=== PATIENT | male | born 1985 | race Caucasian/White ===

== ENCOUNTER 2017-11-12 19:50 | Emergency (ER) | payer MEDICAID, SELFPAY ==
[2017-11-12 19:55] VITALS: BP 138/83; PULSE 95; RESP 18; TEMP 36.7; O2SAT 96; BMI 34.2
--- NOTE | 2017-11-12 20:15 | XR_ITS ---
XR chest 2V HISTORY: ITS.REASON: palpatations ORDERING PHYSICIAN: Chaz Borja MD PATIENT AGE: 32 years COMPARISON: 11/22/2015 FINDINGS: The cardiomediastinal silhouette and pulmonary vascularity are within normal limits. The lungs are clear without infiltrates, suspicious nodules, or pleural effusions. No acute bony abnormalities. IMPRESSION: Negative chest, no acute finding
[2017-11-12 20:37] LABS: Basophils # 0.1 K/mm3 (0-0.2); Basophils % 0.6 % (0.1-2.0); Eosinophils # 0.2 K/mm3 (0.0-0.4); Eosinophils % 1.9 % (0.1-12.0); Hematocrit 46.1 % (42.0-52.0); Hemoglobin 16.3 g/dL (14.1-18.0); Lymphocytes # 2.9 K/mm3 (0.7-4.5); Lymphocytes % 32.6 K/mm3 (10-50); Mean Corpuscular HGB Conc 35.3 g/dL (31.8-35.4); Mean Corpuscular Hemoglobin 30.7 pg (27.0-31.2); Mean Corpuscular Volume 87.1 fl (80-94); Mean Platelet Volume 7.4 fl (7.4-10.4); Monocytes # 0.5 K/mm3 (0.1-1.0); Monocytes % 5.7 % (1.7-9.3); Neutrophils # 5.2 K/mm3 (1.8-7.8); Neutrophils % 59.1 % (37.0-80.0); Platelet Count 233 K/mm3 (142-424); Red Blood Count 5.29 M/mm3 (4.60-6.20); Red Cell Distribution Width 12.7 % (11.5-17.5); White Blood Count 8.8 K/mm3 (4.8-10.8)
--- NOTE | 2017-11-12 20:48 | HMH.EDARPALP ---
ED Disposition Clinical Impression: Palpitations Disposition: Home, Self-Care Condition on Discharge: Good Additional Instructions: call pcp for follow up Referrals: Bárbara Tubbs MD [Primary Care Provider] - - Critical Care Critical Care Time: No Attestation: On 11/12/17, the high probability of a clinically significant, sudden or life threatening deterioration of the following system(s) required my full and direct attention, intervention and personal management. The time I documented below is in addition to time spent performing reported procedures but includes the following listed in this critical care notation. Medical Decision Making - Medical Records Medical records reviewed: Yes: I reviewed the patient's medical records. - Nils Inquiry Pt receiving controlled substance: No Vital Signs: 11/12/17 19:55 Temperature 98.0 F Temperature Source Oral Pulse Rate [Right Brachial] 95 H Respiratory Rate 18 Blood Pressure [Right Arm] 138/83 Blood Pressure Mean [Right Arm] 101 Blood Pressure Source [Right Arm] Automatic Cuff Blood Pressure Position [Right Arm] Sitting 02 Sat by Pulse Oximetry 96 Oxygen Delivery Method Room Air - Lab Data Lab results reviewed: Yes: I reviewed the patient's lab results. Lab Results 11/12/17 20:20: WBC 8.8, RBC 5.29, Hgb 16.3, Hct 46.1, MCV 87.1, MCH 30.7, MCHC 35.3, RDW 12.7, Plt Count 233, MPV 7.4, Neut % (Auto) 59.1, Lymph % (Auto) 32.6, [place] % (Auto) 5.7, Eos % (Auto) 1.9, Baso % (Auto) 0.6, Neut # (Auto) 5.2, Lymph # (Auto) 2.9, [place] # (Auto) 0.5, Eos # (Auto) 0.2, Baso # (Auto) 0.1 11/12/17 20:20: Sodium 139, Potassium 3.6, Chloride 103, Carbon Dioxide 28, Anion Gap 11.6, BUN 16, Creatinine 1.13, Estimated Creat Clear 150, Estimated GFR 75, Est GFR ( Amer) 90, Glucose 98, Calcium 8.3 L, Total Bilirubin 0.1 L, AST 14 L, ALT 29, Alkaline Phosphatase 98, Total Creatine Kinase 124, CK-MB (CK-2) 0.7, CK-MB (CK-2) Rel Index 0.6, Troponin I < 0.02, Total Protein 7.6, Albumin 3.1 L, Globulin 4.5 H, Albumin/Globulin Ratio 0.7 L, TSH 6.03 H, Free T4 Index 4.0 L, Thyroxine (T4) 11.9, T3 Uptake 34 Result diagrams: 11/12/17 20:20 11/12/17 20:20 Orders (Tests/Meds): ORDERS Category Date Time Status CXR 2 view (NOT portable) [XR chest 2V] Stat Exams 11/12/17 20:15 Taken - Radiology Data #1 Image(s): Chest Image Reviewed: Yes I reviewed the patient's radiology image Preliminary Findings: Normal/NAD - ECG Data Tracing #1 I reviewed this ECG and interpreted as documented below: Normal Sinus Rhythm: Yes Ischemic changes: non-specific ST-T wave changes Arrhythmia/Palpitations HPI - General Chief Complaint: Arrhythmia/Palpitations Stated Complaint: heart palpitations and Ab Pain Time Seen by Provider: 11/12/17 20:48 Mode of Arrival: Ambulatory Source of Information: Patient, Medical Record Limitations: No Limitations - History of Present Illness HPI narrative: pt with 2 min episode of inc hr with no syncope and no known stimulants - has had in past and neg w/u about 1 yr ago MD complaint: heart racing Onset (ago): minute(s) Duration: intermittent Severity: similar to previous episodes Context: occurred during rest Arrhythmia history: other Associated symptoms: denies other symptoms - Related Data Home Medications Medication Instructions Recorded Confirmed Levothyroxine Sodium [Synthroid 100 mcg PO DAILY 11/12/17 11/12/17 100mcg (0.1mg) tablet] Lisinopril/Hydrochlorothiazide 1 tab PO DAILY 11/12/17 11/12/17 [Lisinopril-Hctz 10-12.5 mg Tab] Meclizine HCl [Meclizine 25mg Tab] 25 mg PO BID 11/12/17 11/12/17 Omeprazole [Omeprazole 20mg Tab] 20 mg PO DAILY 11/12/17 11/12/17 Allergies Allergy/AdvReac Type Severity Reaction Status Date / Time No Known Allergies Allergy Unverified 08/14/17 14:53 [facility] History I have reviewed the patient's past medical history: Yes Medical History: Denies:: Diabetes Lluvia
--- NOTE | 2017-11-12 20:51 | ED_ITS ---
ED Disposition Clinical Impression: Palpitations Disposition: Home, Self-Care Condition on Discharge: Good Additional Instructions: call pcp for follow up Referrals: Bárbara Tubbs MD [Primary Care Provider] - - Critical Care Critical Care Time: No Attestation: On 11/12/17, the high probability of a clinically significant, sudden or life threatening deterioration of the following system(s) required my full and direct attention, intervention and personal management. The time I documented below is in addition to time spent performing reported procedures but includes the following listed in this critical care notation. Medical Decision Making - Medical Records Medical records reviewed: Yes: I reviewed the patient's medical records. - Nils Inquiry Pt receiving controlled substance: No Vital Signs: 11/12/17 19:55 Temperature 98.0 F Temperature Source Oral Pulse Rate [Right Brachial] 95 H Respiratory Rate 18 Blood Pressure [Right Arm] 138/83 Blood Pressure Mean [Right Arm] 101 Blood Pressure Source [Right Arm] Automatic Cuff Blood Pressure Position [Right Arm] Sitting 02 Sat by Pulse Oximetry 96 Oxygen Delivery Method Room Air - Lab Data Lab results reviewed: Yes: I reviewed the patient's lab results. Lab Results 11/12/17 20:20: WBC 8.8, RBC 5.29, Hgb 16.3, Hct 46.1, MCV 87.1, MCH 30.7, MCHC 35.3, RDW 12.7, Plt Count 233, MPV 7.4, Neut % (Auto) 59.1, Lymph % (Auto) 32.6 , [place] % (Auto) 5.7, Eos % (Auto) 1.9, Baso % (Auto) 0.6, Neut # (Auto) 5.2, Lymph # (Auto) 2.9, [place] # (Auto) 0.5, Eos # (Auto) 0.2, Baso # (Auto) 0.1 11/12/17 20:20: Sodium 139, Potassium 3.6, Chloride 103, Carbon Dioxide 28, Anion Gap 11.6, BUN 16, Creatinine 1.13, Estimated Creat Clear 150, Estimated GFR 75, Est GFR ( Amer) 90, Glucose 98, Calcium 8.3 L, Total Bilirubin 0.1 L, AST 14 L, ALT 29, Alkaline Phosphatase 98, Total Creatine Kinase 124, CK- MB (CK-2) 0.7, CK-MB (CK-2) Rel Index 0.6, Troponin I < 0.02, Total Protein 7.6 , Albumin 3.1 L, Globulin 4.5 H, Albumin/Globulin Ratio 0.7 L, TSH 6.03 H, Free T4 Index 4.0 L, Thyroxine (T4) 11.9, T3 Uptake 34 Result diagrams: 11/12/17 20:20 11/12/17 20:20 Orders (Tests/Meds): ORDERS Category Date Time Status CXR 2 view (NOT portable) [XR chest 2V] Stat Exams 11/12/17 20:15 Taken - Radiology Data #1 Image(s): Chest Image Reviewed: Yes I reviewed the patient's radiology image Preliminary Findings: Normal/NAD - ECG Data Tracing #1 I reviewed this ECG and interpreted as documented below: Normal Sinus Rhythm: Yes Ischemic changes: non-specific ST-T wave changes Arrhythmia/Palpitations HPI - General Chief Complaint: Arrhythmia/Palpitations Stated Complaint: heart palpitations and Ab Pain Time Seen by Provider: 11/12/17 20:48 Mode of Arrival: Ambulatory Source of Information: Patient, Medical Record Limitations: No Limitations - History of Present Illness HPI narrative: pt with 2 min episode of inc hr with no syncope and no known stimulants - has had in past and neg w/u about 1 yr ago complaint: heart racing Onset (ago): minute(s) Duration: intermittent Severity: similar to previous episodes Context: occurred during rest Arrhythmia history: other Associated symptoms: denies other symptoms - Related Data Home Medications Medication Instructions Recorded Confirme
[2017-11-12 21:14] LABS: Alanine Aminotransferase 29 U/L (12-78); Albumin Level 3.1 gm/dL (3.4-5.0); Albumin/Globulin Ratio 0.7 (1.1-1.8); Alkaline Phosphatase 98 U/L (46-116); Anion Gap 11.6 mEq/L (5-15); Aspartate Amino Transferase 14 U/L (15-37); Bilirubin,Total 0.1 mg/dL (0.2-1.0); Blood Urea Nitrogen 16 mg/dL (7-18); CKMB Relative Index 0.6 U/L (0-4.0); Calcium 8.3 mg/dL (8.5-10.1); Carbon Dioxide 28 mmol/L (21.0-32.0); Chloride 103 mmol/L (98-107); Creatine Kinase 124 U/L (39-308); Creatine Kinase MB 0.7 mg/ml (0.0-3.6); Creatinine Clearance Estimated 150 mL/min (0-300); Creatinine,Serum 1.13 mg/dL (0.70-1.30); Estimated Glomerular Filt Rate 75 ml/min (>60); GFR (African American) 90 ML/MIN (>60); Globulin 4.5 gm/dl (1.3-3.2); Glucose 98 mg/dL (74-106); Potassium 3.6 mmoL/L (3.5-5.1); Sodium 139 mmol/L (136-145); T4 (Thyroxine) 11.9 ug/dl (4.7-13.3); Thyroid Stimulating Hormone 6.03 uIU/ml (0.358-3.740); Total Protein,Serum 7.6 gm/dL (6.4-8.2); Triiodothryronine (T3) Uptake 34 % (31-39); Troponin I < 0.02 ng/ml (0.00-0.06)
--- NOTE | 2017-11-12 21:25 | PC.NURSE ---
dr requested another ekg be done.
[2017-11-12 21:50] VITALS: BP 138/85; PULSE 85; RESP 16; TEMP 36.8; O2SAT 98
== END 2017-11-12 21:50 | disposition home or self-care (01) ==
PROVIDERS: Emergency Provider Emergency Medicine; Family Provider Family Medicine; PCP Family Medicine
DX: R00.2 Palpitations (principal)
CPT/HCPCS: 71046; 80053; 82550; 82553; 84436; 84443; 84479; 84484; 85025; 93005; 99284

== ENCOUNTER → 2017-11-29 14:47 | Outpatient (CLI) | payer MEDICAID, SELFPAY ==
--- NOTE | 2017-11-29 14:50 | CT_ITS ---
CT abdomen pelvis wo con COMPARISON: None HISTORY: Right lower quadrant pain TECHNIQUE: Altered axial scans obtained from hemidiaphragms the pelvic floor were performed without IV contrast. Sagittal coronal reformats were evaluated as well. FINDINGS: The lower lung [place] are clear. Stomach is distended with ingested food particles in the gallbladder is contracted. No obvious gallstones are seen. The liver spleen and pancreas appear grossly normal. The adrenal glands are normal. The kidneys are normal size and no calculi and is no obstructive uropathy. Small bowel is normal. I do not definitely identify the appendix but there are no pericecal inflammatory changes. There is moderate scattered stool throughout the colon. The urinary bladder and prostate are normal. IMPRESSION: No definite acute abdominal or pelvic pathology identified
== END ==
PROVIDERS: Family Provider Family Medicine; PCP Family Medicine; Visit Provider Family Medicine
DX: R10.30 Lower abdominal pain, unspecified (principal)
CPT/HCPCS: 74176

== ENCOUNTER 2019-08-22 12:36 | Emergency (ER) | payer BC, SELFPAY ==
[2019-08-22 12:37] VITALS: BP 129/88; PULSE 79; RESP 18; TEMP 36.8; O2SAT 97; BMI 35.2
--- NOTE | 2019-08-22 13:47 | HMH.EDUTC ---
[facility] [place] Clinical Impression: Sinusitis Qualifiers: Sinusitis location: unspecified location Chronicity: unspecified Qualified Code(s): J32.9 - Chronic sinusitis, unspecified Disposition: Home, Self-Care Condition on Discharge: Good Instructions: Sinusitis, Sinus Headache, DI for Sinusitis, Azithromycin, Prednisone Additional Instructions: *Monitor Temp, Over the counter Motrin or Tylenol as directed/as needed Tylenol every 4 hours and Motrin every 6 hours (as long as your family doctor has told you that you can take it) for fever or pain. and straight to ER if unable to lower temp less than 101.0 after medication given *Warm salt water gargles may help to soothe the throat *Throat Lozenges *Warm fluids *Sleep elevated *Humidifier/Vaporizer Follow up IMMEDIATELY for new or worsening symptoms or no Noticeable improvement over the next 48-72 hours. 911 for difficulty breathing or swallowing Prescriptions: Fluticasone Propionate [Flonase 50mcg nasal spray 16gm] 2 spr NS DAILY #1 bottle Transmission Status: Pending to [id number] methylPREDNISolone [Medrol 4mg tab] 4 mg PO DIRECTED #21 tab Transmission Status: Pending to [id number] Azithromycin [Z-Ernesto 250mg Tab*] 250 mg PO UD DOSE PK #6 tab Transmission Status: Pending to [id number] Referrals: Bárbara Tubbs MD [Primary Care Provider] - As needed Forms: Work/School Release Medical Decision Making - Nils Inquiry Pt receiving controlled substance: No Nils was queried for this patient: No Vital Signs: 08/22/19 12:37 Temperature 98.2 F Temperature Source Oral Pulse Rate [Radial] 79 Respiratory Rate 18 Blood Pressure [Right Arm] 129/88 Blood Pressure Mean [Right Arm] 101 Blood Pressure Source [Right Arm] Automatic Cuff Blood Pressure Position [Right Arm] Sitting 02 Sat by Pulse Oximetry 97 Oxygen Delivery Method Room Air - Lab Data Lab results reviewed: Yes: I reviewed the patient's lab results. [facility] [place] HPI - General Stated complaint: head congestion Time Seen by Provider: 08/22/19 13:48 Mode of Arrival: Ambulatory Source of Information: Patient Limitations: No Limitations Description of Symptoms (Recalled from Triage Doc. by RN): HEAD AND CHEST CONGESTION HEENT Symptoms (Recalled from RN notes): Yes Resp Symptoms (Recalled from RN notes): No Skin Symptoms (Recalled from RN notes): No MS Symptoms (Recalled from RN notes): No Functional Status (Recalled from RN notes): WNL - History of Present Illness Provider Complaint: Patient state that he has been having sinus pain and pressure and feels like it is draining in the back of his throat into his chest States that he was at work and kept feeling worse so he came in to make sure that he didnt have the flu - Related Data Home Medications Medication Instructions Recorded Confirmed Levothyroxine Sodium [Synthroid 100 mcg PO DAILY 11/12/17 11/12/17 100mcg (0.1mg) tablet] Lisinopril/Hydrochlorothiazide 1 tab PO DAILY 11/12/17 11/12/17 [Lisinopril-Hctz 10-12.5 mg Tab] Meclizine HCl [Meclizine 25mg Tab] 25 mg PO BID 11/12/17 11/12/17 Omeprazole [Omeprazole 20mg Tab] 20 mg PO DAILY 11/12/17 11/12/17 Previous Rx's Medication Instructions Recorded Ondansetron [Zofran 4mg ODT] 4 mg PO Q8H PRN #9 tab.rapdis 12/04/17 Azithromycin [Z-Ernesto 250mg Tab*] 250 mg PO UD DOSE PK #6 tab 02/04/18 Benzonatate [Tessalon Perle 100mg 100 mg PO TID #30 cap 02/04/18 Cap] Fluticasone Propionate [Flonase 2 spr NS DAILY #1 bottle 02/04/18 50mcg nasal spray 16gm] predniSONE [Prednisone 10mg Tab 10 mg PO UD DOSE PK #21 pack 02/04/18 Dose-Pack] Azithromycin [Z-Ernesto 250mg Tab*] 250 mg PO UD DOSE PK #6 tab 08/22/19 Fluticasone Propionate [Flonase 2 spr NS DAILY #1 bottle 08/22/19 50mcg nasal spray 16gm] methylPREDNISolone [Medrol 4mg 4 mg PO DIRECTED #21 tab 08/22/19 tab] Allergies Allergy/AdvReac Type Severity Reaction Status Date / Time No Kno
[2019-08-22 13:55] LABS: UTC Influenza A Antigen Negative (Negative); UTC Influenza B Antigen Negative (Negative)
[2019-08-22 14:01] VITALS: BP 129/88; PULSE 79; RESP 18; TEMP 36.8; O2SAT 97
== END 2019-08-22 14:02 | disposition home or self-care (01) ==
PROVIDERS: Emergency Provider Nurse Practitioner; PCP Family Medicine
DX: J32.9 Chronic sinusitis, unspecified (principal); I10 Essential (primary) hypertension; F17.210 Nicotine dependence, cigarettes, uncomplicated; K21.9 Gastro-esophageal reflux disease without esophagitis
CPT/HCPCS: 87804; 99201

== ENCOUNTER 2020-06-03 22:23 | Emergency (ER) | payer BC, SELFPAY ==
[2020-06-03 22:25] VITALS: BP 145/95; PULSE 75; RESP 16; TEMP 36.8; O2SAT 96; BMI 33.9
--- NOTE | 2020-06-03 22:46 | ECG_ITS ---
APPROVED REPORT Exam: Resting ECG HR:64 bpm ECG Measurements Heart Rate 64 AXES DE 180 P 37 QRSd 98 QRS 32 QT 396 T 18 QTc 408 Conclusion Normal sinus rhythm with sinus arrhythmia Normal ECG Electronically signed by : Sudhir Cueto, 06/04/2020 13:42:12
[2020-06-03 22:58] VITALS: BMI 27.1
--- NOTE | 2020-06-03 22:59 | CT_ITS ---
PROCEDURE: CT HEAD/BRAIN WO CON CLINICAL INDICATION: DIZZINESS Ears ringing COMPARISON: CT HDWO CT HEAD W/O CONTRAST from 10/22/[address] SOFT TISSUE NECK W/CONTRAST from 07/21/2017 TECHNIQUE: Axial images obtained. All CT scans at the facility use one or more dose reduction, viz: automated exposure control, ma/kV adjustment per patient size (including targeted exams where dose is matched to indication, i.e. head), or iterative reconstruction technique. FINDINGS: No midline shift, mass effect, intracranial hemorrhage, hydrocephalus, or extra-axial fluid collection is evident. The calvarium has an unremarkable appearance. No mastoid effusion. No sinus air-fluid level. IMPRESSION: No acute intracranial finding Dictated by: Marco Kang MD 06/04/2020 04:58 Marco Kang MD in [place] 06/04/2020 04:58
[2020-06-03 23:09] LABS: Chloride 106 mmol/L (98-107); Sodium 139 mmol/L (136-145)
[2020-06-03 23:10] LABS: Basophils # 0.1 K/mm3 (0-0.2); Basophils % 0.7 % (0.1-2.0); Eosinophils # 0.3 K/mm3 (0.0-0.4); Eosinophils % 3.7 % (0.1-12.0); Hematocrit 48.6 % (42.0-52.0); Lymphocytes # 3.4 K/mm3 (0.7-4.5); Lymphocytes % 39.1 % (10-50); Mean Corpuscular HGB Conc 32.9 g/dL (31.8-35.4); Mean Corpuscular Hemoglobin 29.5 pg (27.0-31.2); Mean Corpuscular Volume 89.9 fl (80-94); Mean Platelet Volume 7.6 fl (7.4-10.4); Monocytes # 0.4 K/mm3 (0.1-1.0); Monocytes % 4.5 % (1.7-9.3); Neutrophils # 4.6 K/mm3 (1.8-7.8); Platelet Count 215 K/mm3 (142-424); Potassium 3.6 mmoL/L (3.5-5.1); Red Blood Count 5.41 M/mm3 (4.60-6.20); Red Cell Distribution Width 13.2 % (11.5-17.5); White Blood Count 8.8 K/mm3 (4.8-10.8)
[2020-06-03 23:12] LABS: Alanine Aminotransferase 36 U/L (12-78); Albumin Level 3.7 g/dl (3.5-5.0); Alkaline Phosphatase 102 U/L (38-126); Anion Gap 10.6 mEq/L (5-15); Aspartate Amino Transferase 30 U/L (17-59); Bilirubin,Direct 0.1 mg/dl (0.0-0.4); Bilirubin,Indirect 0.3 mg/dL (0.0-0.9); Bilirubin,Total 0.4 mg/dl (0.2-1.3); Bilirubin,Unconjugated 0.3 mg/dL (0.0-1.1); Blood Urea Nitrogen 18 mg/dl (9-20); Calcium 8.5 mg/dl (8.4-10.2); Carbon Dioxide 26 mmol/L (22.0-30.0); Creatinine Clearance Estimated 119 mL/min (50-200); Estimated Glomerular Filt Rate 76 ml/min (>60); GFR (African American) 92 ML/MIN (>60); Glucose 143 mg/dl (74-100); Total Protein,Serum 7.3 g/dl (6.3-8.2)
[2020-06-03 23:25] VITALS: BP 137/86; PULSE 71; RESP 16; O2SAT 97
--- NOTE | 2020-06-03 23:48 | HMH.EDDIZZ ---
ED Disposition Clinical Impression: Vertigo Disposition: Home, Self-Care Condition on Discharge: Good Instructions: DI for Vertigo Additional Instructions: call pcp and ent for follow up Referrals: Bárbara Tubbs MD [Primary Care Provider] - Ruslan Thomas MD [Staff Physician] - - Critical Care Critical Care Time: No Attestation: On 06/03/20, the high probability of a clinically significant, sudden or life threatening deterioration of the following system(s) required my full and direct attention, intervention and personal management. The time I documented below is in addition to time spent performing reported procedures but includes the following listed in this critical care notation. Medical Decision Making - Medical Records Medical records reviewed: Yes: I reviewed the patient's medical records. - Nils Inquiry Pt receiving controlled substance: No Vital Signs: 06/03/20 22:25 Temperature 98.3 F Temperature Source Oral Pulse Rate [Left Radial] 75 Respiratory Rate 16 Blood Pressure [Right Arm] 145/95 H Blood Pressure Mean [Right Arm] 111 Blood Pressure Source [Right Arm] Automatic Cuff Blood Pressure Position [Right Arm] Sitting 02 Sat by Pulse Oximetry 96 Oxygen Delivery Method Room Air - Lab Data Lab results reviewed: Yes: I reviewed the patient's lab results. Lab Results 06/03/20 22:42: WBC 8.8, RBC 5.41, Hgb 16.0, Hct 48.6, MCV 89.9, MCH 29.5, MCHC 32.9, RDW 13.2, Plt Count 215, MPV 7.6, Neut % (Auto) 52.0, Lymph % (Auto) 39.1, [place] % (Auto) 4.5, Eos % (Auto) 3.7, Baso % (Auto) 0.7, Neut # (Auto) 4.6, Lymph # (Auto) 3.4, [place] # (Auto) 0.4, Eos # (Auto) 0.3, Baso # (Auto) 0.1 06/03/20 22:42: Sodium 139, Potassium 3.6, Chloride 106, Carbon Dioxide 26, Anion Gap 10.6, BUN 18, Creatinine 1.10, Estimated Creat Clear 119, Estimated GFR 76, Est GFR ( Amer) 92, Glucose 143 H, Calcium 8.5, Total Bilirubin 0.4, Direct Bilirubin 0.1, Conjugated Bilirubin 0.0, Indirect Bilirubin 0.3, Unconjugated Bilirubin 0.3, AST 30, ALT 36, Alkaline Phosphatase 102, Troponin I < 0.01, Total Protein 7.3, Albumin 3.7 Result diagrams: 06/03/20 22:42 06/03/20 22:42 Orders (Tests/Meds): ED MEDICATIONS Generic Name Dose Route Start Last Admin Trade Name Freq PRN Reason Stop Dose Admin Sodium Chloride 1,000 mls @ 999 mls/hr 06/03/20 23:00 06/03/20 23:15 Sod Chlor 0.9% 1000ml Bag IV 06/04/20 00:00 999 mls/hr .Q1H1M EDGAR Administration Discontinued Medications Generic Name Dose Route Start Last Admin Trade Name Freq PRN Reason Stop Dose Admin Methylprednisolone Sodium Succinate 125 mg 06/03/20 23:11 06/03/20 23:15 Methylprednisolone Sod Succ 125mg Vial IV 06/03/20 23:12 125 mg ONCE ONE Administration ORDERS Category Date Time Status CT head/brain wo con Stat Cat Scan 06/03/20 22:59 Taken Troponin I Q3H Lab 06/04/20 02:00 Ordered Troponin I Q3H Lab 06/04/20 05:00 Ordered - CT Data CT Scan: Head Time Received: 00:[address] Reviewed: Yes: I have viewed the radiologist's interpretation Preliminary Findings: Normal/NAD - ECG Data Tracing #1 Normal Sinus Rhythm: Yes Ischemic changes: non-specific ST-T wave changes Dizzy HPI - General Chief Complaint: Weakness Stated Complaint: Ears,dizzy,weakness Time Seen by Provider: 06/03/20 22:45 Mode of Arrival: Ambulatory Source of Information: Patient, Medical Record Limitations: No Limitations Description of Symptoms (Recalled from ER Triage Doc. by RN): pt c/o chronic ringing in his ears that he complains are worse over the last 3 days. pt also complains of dizziness when ambulating and weakness and fatigue for the last 3 days as well. pt denies any chest pain or SOB - History of Present Illness HPI Narrative: tinnitus bilat and dizzyness worse with head movement - has had same issues in past - no fever/rash or trauma MD complaint: dizziness Onset (ago): day(s) Timing: waxing/waning Description: lighth
[2020-06-03 23:50] LABS: Troponin I < 0.01 ng/ml (0.00-0.034)
[2020-06-04 00:49] VITALS: BP 121/79; PULSE 81; RESP 16; TEMP 36.7; O2SAT 98
== END 2020-06-04 00:52 | disposition home or self-care (01) ==
PROVIDERS: Emergency Provider Emergency Medicine; PCP Family Medicine
DX: R42 Dizziness and giddiness (principal); K21.9 Gastro-esophageal reflux disease without esophagitis; I10 Essential (primary) hypertension; E03.9 Hypothyroidism, unspecified; F17.210 Nicotine dependence, cigarettes, uncomplicated
CPT/HCPCS: 70450; 80048; 80076; 84484; 85025; 93005; 96365; 96375; 99283

== ENCOUNTER 2021-02-25 15:23 | Emergency (ER) | payer BC, SELFPAY ==
[2021-02-25 15:24] VITALS: BP 146/84; PULSE 95; RESP 16; TEMP 36.8; O2SAT 98; BMI 31.8
--- NOTE | 2021-02-25 15:36 | XR_ITS ---
PROCEDURE INFORMATION: Exam: XR Left Hand Exam date and time: 02/25/2021 3:36 PM Age: 36 years old Clinical indication: Injury or trauma; Other: PT states he was working with metal a a piece went into lt hand R/O F b; Puncture; Left; Additional info: Possible fb in left middle finger TECHNIQUE: Imaging protocol: XR Left hand. Views: 3 or more views. COMPARISON: No relevant prior studies available. FINDINGS: Bones/joints: No acute fracture or dislocation. Normal bone mineralization. Joint spaces are preserved. Normal carpal bone alignment. Soft tissues: 3.5 x 1.0 mm metallic foreign bodies in the soft tissues dorsal to the 3rd metacarpal head. IMPRESSION: Metallic foreign body in the soft tissues dorsal to the 3rd metacarpal head.
--- NOTE | 2021-02-25 15:36 | PC.NURSE ---
notified rad of x-ray
--- NOTE | 2021-02-25 16:16 | HMH.EDGENADL ---
ED Disposition Clinical Impression: Soft tissues foreign body Disposition: Home, Self-Care Condition on Discharge: Good Instructions: DI for Removal of Foreign Body From Skin Additional Instructions: Clean wound with soap and water and bandage daily until healed. Return to the emergency department if any redness, increasing pain, pus drainage, fever, or red streaks. Referrals: Bárbara Tubbs MD [Primary Care Provider] - - Critical Care Critical Care Time: No Attestation: On 02/25/21, the high probability of a clinically significant, sudden or life threatening deterioration of the following system(s) required my full and direct attention, intervention and personal management. The time I documented below is in addition to time spent performing reported procedures but includes the following listed in this critical care notation. Medical Decision Making - Nils Inquiry Pt receiving controlled substance: No Vital Signs: 02/25/21 15:24 Temperature 98.3 F Temperature Source Oral Pulse Rate [Right] 95 H Respiratory Rate 16 Blood Pressure [Right Arm] 146/84 H Blood Pressure Mean [Right Arm] 104 Blood Pressure Source [Right Arm] Automatic Cuff Blood Pressure Position [Right Arm] Sitting 02 Sat by Pulse Oximetry 98 Oxygen Delivery Method Room Air Orders (Tests/Meds): ED MEDICATIONS Discontinued Medications Generic Name Dose Route Start Last Admin Trade Name Freq PRN Reason Stop Dose Admin Lidocaine/Epinephrine 10 ml 02/25/21 16:16 Lidocaine 2% W/Epi 1:100,000 20ml Vial IJ 02/25/21 16:17 ONCE ONE General Adult HPI - General Chief complaint: Skin/Abscess/Foreign Body Stated complaint: ao METAL IN L HAND Time Seen by Provider: 02/25/21 16:10 Mode of Arrival: Ambulatory Limitations: No Limitations Description of Symptoms (Recalled from ER Triage Doc. by RN): Pt advises he was beating on metal with hammer and he thinks a pieces went into his hand. His left middle finger - History of Present Illness HPI narrative: A piece of metal chipped off when he was beating it with a hammer, embedding itself in the soft tissue of his left hand over the region of the third metacarpal head. Last tetanus immunization 3 months ago. - Related Data Home Medications Medication Instructions Recorded Confirmed Levothyroxine Sodium [Synthroid 100 mcg PO DAILY 11/12/17 06/04/20 100mcg (0.1mg) tablet] Lisinopril/Hydrochlorothiazide 1 tab PO DAILY 11/12/17 06/04/20 [Lisinopril-Hctz 10-12.5 mg Tab] Omeprazole [Omeprazole 20mg Tab] 20 mg PO DAILY 11/12/17 06/04/20 Allergies Allergy/AdvReac Type Severity Reaction Status Date / Time No Known Allergies Allergy Verified 06/03/20 23:09 [facility] History - Hepatitis A Screen Drug use history?: No High risk sexual behaviors?: No History of sexually transmitted infection?: No Currently employed?: No Childcare worker?: No Do you have indoor plumbing?: Yes Do you have electricity?: Yes Attestation statement:: This patient has been screened for Hepatitis A risk factors. I have reviewed the patient's past medical history: Yes Medical History: Reports:: Gastroesophageal Reflux Disease(GERD), Hypertension Denies:: Diabetes Mellitus Type 1, Diabetes Mellitus Type 2 Other Medical History: Reports: Hypothyroidism Laterality Cases: Right: Other Other Surgeries: Yes: Thyroidectomy - Social History Smoking Status: Current every day smoker Tobacco Type: cigarettes # Packs/Day (cigarettes): 1 Alcohol Intake: never Occupational Status: employed ROS Obtained: Yes Systems reviewed as appropriate & no additional complaints - Musculoskeletal Musculoskeletal: Reports as per HPI - Neurologic Neurologic: Denies numbness, Denies weakness Physical Exam - General General appearance: alert, in no apparent distress - Respiratory Respiratory exam: Absent: respiratory distress - Cardiovascular Cardiovascular exam: Present: regular ra
[2021-02-25 17:03] VITALS: BP 146/84; PULSE 95; RESP 16; TEMP 36.8; O2SAT 98
== END 2021-02-25 17:05 | disposition home or self-care (01) ==
PROVIDERS: Emergency Provider Emergency Medicine; PCP Family Medicine
DX: S60.552A Superficial foreign body of left hand, initial encounter (principal)
CPT/HCPCS: 10120; 73130; 96372; 99281; 99282

== ENCOUNTER → 2021-03-21 15:37 | Outpatient (CLI) | payer SELFPAY ==
[2021-03-21 16:08] VITALS: BMI 32.3
== END ==
PROVIDERS: PCP Family Medicine; Visit Provider Nurse Practitioner Family
DX: Z02.4 Encounter for examination for driving license (principal)

== ENCOUNTER 2022-01-17 15:40 | Emergency (ER) | payer BC, SELFPAY ==
--- NOTE | 2022-01-17 15:37 | ECG_ITS ---
APPROVED REPORT Exam: Resting ECG HR:82 bpm ECG Measurements Heart Rate 82 AXES CA 181 P 51 QRSd 106 QRS 28 QT 370 T 41 QTc 409 Conclusion SINUS RHYTHM NORMAL ECG UNCONFIRMED REPORT Electronically signed by : Sudhir Cueto MD 01/20/2022 10:33:29
[2022-01-17 15:41] VITALS: BP 133/84; PULSE 80; RESP 18; TEMP 36.5; O2SAT 96; BMI 31.1
--- NOTE | 2022-01-17 15:41 | HMH.EDCP ---
ED Disposition Clinical Impression: Atypical chest pain, Upper back pain Disposition: Home, Self-Care Condition on Discharge: Good Instructions: DI for Atypical Chest Pain Additional Instructions: follow up PCP, return for worse - Critical Care Critical Care Time: No Attestation: On , the high probability of a clinically significant, sudden or life threatening deterioration of the following system(s) required my full and direct attention, intervention and personal management. The time I documented below is in addition to time spent performing reported procedures but includes the following listed in this critical care notation. Medical Decision Making - Medical Records Medical records reviewed: Yes: I reviewed the patient's medical records. - Nils Inquiry Pt receiving controlled substance: No Vital Signs: 01/17/22 15:41 01/17/22 15:44 Temperature 97.7 F Temperature Source Oral Pulse Rate 90 Pulse Rate [Apical] 80 Respiratory Rate 18 17 Blood Pressure 127/84 Blood Pressure [Right Arm] 133/84 Blood Pressure Mean [Right Arm] 100 02 Sat by Pulse Oximetry 96 99 - Lab Data Lab Results 01/17/22 15:40: WBC 9.9, RBC 5.28, Hgb 16.5, Hct 49.2, MCV 93.1, MCH 31.1, MCHC 33.4, RDW 13.3, Plt Count 235, MPV 8.1, Neut % (Auto) 66.4, Lymph % (Auto) 25.9, [place] % (Auto) 3.5, Eos % (Auto) 2.2, Baso % (Auto) 2.0, Neut # (Auto) 6.6, Lymph # (Auto) 2.6, [place] # (Auto) 0.4, Eos # (Auto) 0.2, Baso # (Auto) 0.2 01/17/22 15:40: Sodium 139, Potassium 3.5, Chloride 105, Carbon Dioxide 29, Anion Gap 8.5, BUN 14, Creatinine 0.90, Estimated Creat Clear 164, Estimated GFR 94, Est GFR ( Amer) 114, Glucose 96, Calcium 8.7, Total Bilirubin 0.3, AST 30, ALT 29, Alkaline Phosphatase 97, Troponin I < 0.01, Total Protein 7.3, Albumin 4.0, Globulin 3.3 H, Albumin/Globulin Ratio 1.2 Result diagrams: 01/17/22 15:40 01/17/22 15:40 Orders (Tests/Meds): ED MEDICATIONS Discontinued Medications Generic Name Dose Route Start Last Admin Trade Name Sylvia PRN Reason Stop Dose Admin Aspirin 324 mg 01/17/22 15:43 01/17/22 15:52 Aspirin 81mg Chewable Tablet PO 01/17/22 15:44 324 mg ONCE ONE Administration ORDERS Category Date Time Status Chest XR -- portable [XR chest portable] Stat Exams 01/17/22 15:44 Taken - ECG Data Tracing #1 I reviewed this ECG and interpreted as documented below: ekg by me nsr, qrs nml, no st elev Chest Pain HPI - General Chief Complaint: Chest Pain Stated Complaint: chest pain Time Seen by Provider: 01/17/22 15:41 - History of Present Illness HPI narrative: cp rad to back and neck few days worse with left arm rom Duration: constant, intermittent Pain location: left chest Severity: moderate Pain radiation: LUE, back, neck Relieving factors: remaining still Exacerbating factors: movement - Related Data Home Medications Medication Instructions Recorded Confirmed Levothyroxine Sodium [Synthroid 100 mcg PO DAILY 11/12/17 06/04/20 100mcg (0.1mg) tablet] Lisinopril/Hydrochlorothiazide 1 tab PO DAILY 11/12/17 06/04/20 [Lisinopril-Hctz 10-12.5 mg Tab] Omeprazole [Omeprazole 20mg Tab] 20 mg PO DAILY 11/12/17 06/04/20 Allergies Allergy/AdvReac Type Severity Reaction Status Date / Time No Known Allergies Allergy Verified 06/03/20 23:09 [facility] History - Hepatitis A Screen Attestation statement:: This patient has been screened for Hepatitis A risk factors. Medical History: Reports:: Gastroesophageal Reflux Disease(GERD), Hypertension Denies:: Diabetes Mellitus Type 1, Diabetes Mellitus Type 2 Other Medical History: Reports: Hypothyroidism Laterality Cases: Right: Other Other Surgeries: Yes: Thyroidectomy - Social History Smoking Status: Current every day smoker Tobacco Type: cigarettes # Packs/Day (cigarettes): 1 Alcohol Intake: never Occupational Status: employed ROS Obtained: Yes All systems reviewed & no additional complaints
[2022-01-17 15:44] VITALS: BP 127/84; PULSE 90; RESP 17; O2SAT 99
--- NOTE | 2022-01-17 15:44 | XR_ITS ---
FINAL REPORT CLINICAL HISTORY: cp center of chest now into back and down shoulder, smoker FINDINGS: A portable view of the chest was obtained. Cardiac and mediastinal silhouettes are within normal limits. The lungs are clear. There is no pleural effusion or pneumothorax. IMPRESSION: No acute process on this portable exam. Reviewed, Interpreted and Dictated by Marlin Kraus MD Transcribed by Lolis Freitas Authenticated by Marlin Kraus MD on 01/17/2022 04:32:46 PM [facility]
[2022-01-17 15:53] LABS: Basophils # 0.2 K/mm3 (0-0.2); Eosinophils # 0.2 K/mm3 (0.0-0.4); Eosinophils % 2.2 % (0.1-12.0); Hematocrit 49.2 % (42.0-52.0); Hemoglobin 16.5 g/dL (14.1-18.0); Lymphocytes # 2.6 K/mm3 (0.7-4.5); Lymphocytes % 25.9 % (10-50); Mean Corpuscular HGB Conc 33.4 g/dL (31.8-35.4); Mean Corpuscular Hemoglobin 31.1 pg (27.0-31.2); Mean Corpuscular Volume 93.1 fl (80-94); Mean Platelet Volume 8.1 fl (7.4-10.4); Monocytes # 0.4 K/mm3 (0.1-1.0); Monocytes % 3.5 % (1.7-9.3); Neutrophils # 6.6 K/mm3 (1.8-7.8); Neutrophils % 66.4 % (37.0-80.0); Platelet Count 235 K/mm3 (142-424); Red Blood Count 5.28 M/mm3 (4.60-6.20); Red Cell Distribution Width 13.3 % (11.5-17.5); White Blood Count 9.9 K/mm3 (4.8-10.8)
[2022-01-17 16:00] LABS: Chloride 105 mmol/L (98-107); Potassium 3.5 mmoL/L (3.5-5.1); Sodium 139 mmol/L (136-145)
[2022-01-17 16:03] LABS: Alanine Aminotransferase 29 U/L (12-78); Albumin/Globulin Ratio 1.2 (1.1-1.8); Alkaline Phosphatase 97 U/L (38-126); Anion Gap 8.5 mEq/L (5-15); Aspartate Amino Transferase 30 U/L (17-59); Bilirubin,Total 0.3 mg/dl (0.2-1.3); Blood Urea Nitrogen 14 mg/dl (9-20); Carbon Dioxide 29 mmol/L (22.0-30.0); Creatinine Clearance Estimated 164 mL/min (50-200); Estimated Glomerular Filt Rate 94 ml/min (>60); GFR (African American) 114 ML/MIN (>60); Globulin 3.3 g/dL (1.3-3.2); Total Protein,Serum 7.3 g/dl (6.3-8.2)
[2022-01-17 16:04] LABS: Calcium 8.7 mg/dl (8.4-10.2); Glucose 96 mg/dl (74-100)
[2022-01-17 16:19] LABS: Troponin I < 0.01 ng/ml (0.00-0.034)
[2022-01-17 16:41] VITALS: BP 114/81; PULSE 74; RESP 18; TEMP 36.8; O2SAT 97
== END 2022-01-17 16:42 | disposition home or self-care (01) ==
PROVIDERS: Emergency Provider Emergency Medicine; PCP Family Medicine
DX: R07.89 Other chest pain (principal); M54.6 Pain in thoracic spine; M54.2 Cervicalgia; K21.9 Gastro-esophageal reflux disease without esophagitis; I10 Essential (primary) hypertension; Z72.0 Tobacco use
CPT/HCPCS: 71045; 80053; 84484; 85025; 93005; 99283

== ENCOUNTER → 2022-01-25 15:42 | Outpatient (CLI) | payer BC, SELFPAY ==
--- NOTE | 2022-01-25 | CA_ITS ---
FINAL REPORT TECHNIQUE: Color Doppler, duplex Doppler and compression sonography of the right lower extremity venous system was performed. CLINICAL HISTORY: .Right anterior leg pain s/p injury 11/2021, with chronic edema. FINDINGS: There is no evidence of deep venous thrombosis from the level of the groin to the calf. The veins are patent and compressible. There is subcutaneous edema or hemorrhage at the area of interest in the lower leg. IMPRESSION: No evidence of deep venous thrombosis right lower extremity. Reviewed, Interpreted and Dictated by Sujit Hastings III, MD Transcribed by Lolis Freitas Authenticated and [facility]
== END ==
PROVIDERS: PCP Family Medicine; Visit Provider Family Medicine
DX: R60.0 Localized edema (principal)
CPT/HCPCS: 93971

== ENCOUNTER 2023-01-25 15:53 | Emergency (ER) | payer BC, SELFPAY ==
--- NOTE | 2023-01-25 15:53 | ECG_ITS ---
APPROVED REPORT Exam: Resting ECG HR:77 bpm ECG Measurements Heart Rate 77 AXES WV 152 P 28 QRSd 104 QRS 29 QT 386 T 36 QTc 418 Conclusion SINUS RHYTHM NORMAL ECG UNCONFIRMED REPORT Electronically signed by : Sudhir Cueto MD 01/27/2023 07:03:07
[2023-01-25 15:54] VITALS: BP 119/82; PULSE 77; RESP 17; TEMP 36.9; O2SAT 98; BMI 33.2
[2023-01-25 16:00] VITALS: BP 110/77; PULSE 78; O2SAT 98
--- NOTE | 2023-01-25 16:07 | PC.NURSE ---
Went back to assess for +trousseau sign, which was negative on further investigation. Attending notified
[2023-01-25 16:10] LABS: Basophils # 0.1 K/mm3 (0-0.2); Basophils % 0.5 % (0.1-2.0); Eosinophils # 0.2 K/mm3 (0.0-0.4); Eosinophils % 2.4 % (0.1-12.0); Hematocrit 51.2 % (42.0-52.0); Hemoglobin 17.1 g/dL (14.1-18.0); Lymphocytes # 2.9 K/mm3 (0.7-4.5); Lymphocytes % 31.7 % (10-50); Mean Corpuscular HGB Conc 33.5 g/dL (31.8-35.4); Mean Corpuscular Hemoglobin 30.4 pg (27.0-31.2); Mean Corpuscular Volume 90.9 fl (80-94); Mean Platelet Volume 8.1 fl (7.4-10.4); Monocytes # 0.4 K/mm3 (0.1-1.0); Monocytes % 4.7 % (1.7-9.3); Neutrophils # 5.6 K/mm3 (1.8-7.8); Neutrophils % 60.7 % (37.0-80.0); Platelet Count 248 K/mm3 (142-424); Red Blood Count 5.63 M/mm3 (4.60-6.20); Red Cell Distribution Width 13.1 % (11.5-17.5); White Blood Count 9.2 K/mm3 (4.8-10.8)
[2023-01-25 16:17] LABS: Alanine Aminotransferase 32 U/L (12-78); Albumin Level 3.9 g/dl (3.5-5.0); Albumin/Globulin Ratio 1.1 (1.1-1.8); Alkaline Phosphatase 111 U/L (38-126); Anion Gap 14.3 mEq/L (5-15); Aspartate Amino Transferase 27 U/L (17-59); Bilirubin,Total 0.7 mg/dl (0.2-1.3); Blood Urea Nitrogen 16 mg/dl (9-20); Calcium 8.5 mg/dl (8.4-10.2); Carbon Dioxide 24 mmol/L (22.0-30.0); Chloride 105 mmol/L (98-107); Creatinine Clearance Estimated 156 mL/min (50-200); Estimated Glomerular Filt Rate 83 ml/min (>60); GFR (African American) 101 ML/MIN (>60); Globulin 3.5 g/dL (1.3-3.2); Glucose 119 mg/dl (74-100); Potassium 3.3 mmoL/L (3.5-5.1); Sodium 140 mmol/L (136-145); Total Protein,Serum 7.4 g/dl (6.3-8.2)
--- NOTE | 2023-01-25 16:25 | PC.NURSE ---
jonathan betancur at
[2023-01-25 16:35] LABS: Troponin I < 0.01 ng/ml (0.00-0.034)
--- NOTE | 2023-01-25 16:56 | PC.NURSE ---
Patient feels back to his normal Attending notified. Tolerating PO
--- NOTE | 2023-01-25 17:29 | HMH.EDGENADL ---
Discharge Plan Disposition Patient Disposition: Home Health Service Condition: Good Chief Complaint: Dizziness Prescriptions Prescriptions: No Action lisinopril-hydrochlorothiazide 20-12.5 mg tablet 1 tab PO DAILY Label Comments: TAKE ONE TABLET BY MOUTH EVERY DAY omeprazole 40 mg capsule,delayed release(DR/EC) 40 mg PO DAILY Label Comments: TAKE ONE CAPSULE BY MOUTH EVERY DAY levothyroxine 25 mcg tablet 25 mcg PO DAILY Label Comments: TAKE ONE TABLET BY MOUTH EVERY DAY meclizine 25 mg tablet 25 mg PO BIDP PRN (Reason: Dizziness) Label Comments: TAKE ONE TABLET BY MOUTH TWICE DAILY NEEDED Referrals Follow up/Referrals: Bárbara Tubbs MD [Primary Care Provider] - See instructions Clinical Impressions Clinical Impression: Heat exhaustion Discharge ED Provider: Hemant Dave General Adult HPI General Chief complaint: Dizziness Stated complaint: syncope Time Seen by Provider: 01/25/23 16:04 Mode of Arrival: EMS Source of Information: Patient and EMS Limitations: No Limitations Description of Symptoms (Recalled from ER Triage Doc. by RN): 38 M presents via EMS after being outside for >1 hour in the 90 degree heat. Patient had not ate or drank anything today. He had a sudden onset of chest pressure, dizziness, and numbness come over this whole body. He almost passed out, but was able to sit down and never lost conciousness. EMS report hypertension, FSBS 88, and being A/O x3. During triage it was noted that while BP cuff inflating, patient had a potential +trousseau sign. History of Present Illness HPI narrative: 38yo M presents to the ER secondary to dizziness, tingling of his mouth, face, bilateral hands. Denies chest pain or shortness of breath. States became very weak and almost passed out. This all occurred after standing outside in the heat for several hours as part of his friend's per session. Patient reports he has not had anything to eat or drink today other than Mountain Dew because he had blood work completed this morning Related Data Home Medications Medication Instructions Recorded Confirmed levothyroxine 25 mcg tablet 25 mcg PO DAILY Thyroid 01/25/23 01/25/23 lisinopril 20 1 tab PO DAILY High blood pressure 01/25/23 01/25/23 mg-hydrochlorothiazide 12.5 mg tablet meclizine 25 mg tablet 25 mg PO BIDP PRN Dizziness 01/25/23 01/25/23 omeprazole 40 mg capsule,delayed 40 mg PO DAILY Acid reflux 01/25/23 01/25/23 release Allergies Allergy/AdvReac Type Severity Reaction Status Date / Time No Known Allergies Allergy Verified 06/03/20 23:09 [facility] Disclaimer: The information contained in this section may have been updated after the patient was seen, as this information can be updated by other users. Medical History GERD (gastroesophageal reflux disease) HTN (hypertension) Hypothyroid Social History Smoking Status: Current every day smoker tobacco type: cigarettes packs per day: 1 second hand exposure: Yes alcohol intake: never current occupational status: employed Travel in the last 8 weeks: None ROS Obtained: Yes Systems reviewed as appropriate & no additional complaints except as documented Physical Exam General General appearance: alert and in no apparent distress Head Head exam: atraumatic Eye Eye exam: Present normal appearance Neck Neck exam: Present normal inspection Chest Chest inspection: Present normal inspection Respiratory Respiratory exam: Present normal lung sounds bilaterally; Absent respiratory distress Cardiovascular Cardiovascular exam: Present regular rate, normal rhythm and normal heart sounds Abdominal Exam Abdominal exam: Present soft; Absent distention or tenderness Extremities Exam Extremities exam: Present normal inspection and full ROM; Absent tenderness or edema Ne
[2023-01-25 17:42] VITALS: BP 111/82; PULSE 73; RESP 17; TEMP 36.9; O2SAT 100
== END 2023-01-25 17:42 | disposition home or self-care (01) ==
PROVIDERS: Emergency Provider Family Medicine; PCP Family Medicine
DX: T67.5XXA Heat exhaustion, unspecified, initial encounter (principal); R42 Dizziness and giddiness; R20.0 Anesthesia of skin; I10 Essential (primary) hypertension; E03.9 Hypothyroidism, unspecified; K21.9 Gastro-esophageal reflux disease without esophagitis; F17.210 Nicotine dependence, cigarettes, uncomplicated
CPT/HCPCS: 80053; 84484; 85025; 93005; 96360; 99285

== ENCOUNTER → 2023-02-01 12:18 | Outpatient (CLI) | payer BC, SELFPAY ==
--- NOTE | 2023-02-01 | CA_ITS ---
FINAL REPORT CLINICAL HISTORY: HTN, Smoker, Near syncopal collapse during , Family Hx-stroke FINDINGS: RIGHT CAROTID: CCA PSV 62-68 cm/sec ICA PSV 63-95 cm/sec ICA/CCA PSV ratio 1.5 -2.3 . Comments: Mild plaque disease is noted. LEFTCAROTID: CCA PSV 75 - 91. cm/sec ICA PSV 40- 75. cm/sec ICA/CCA PSV ratio 0.99 - 1.90 . Comments: Mild plaque disease is noted. Antegrade flow is seen within the vertebral arteries. IMPRESSION: Less than 50% bilateral carotid artery stenosis. Reviewed, Interpreted and Dictated by Bárbara Reynoso MD Transcribed by Mary Gonzales Authenticated and [facility]
== END ==
LOC: RT 12:20
PROVIDERS: PCP Family Medicine; Visit Provider Nurse Practitioner Family
DX: R42 Dizziness and giddiness (principal); R00.2 Palpitations
CPT/HCPCS: 93270; 93880

== ENCOUNTER 2023-02-09 13:15 | Emergency (ER) | payer BC, SELFPAY ==
[2023-02-09] VITALS (7 sets, daily range): BP systolic 123–140; BP diastolic 80–101; PULSE 60–79; RESP 14–18; TEMP 36.5; O2SAT 96–98; BMI 33.2
--- NOTE | 2023-02-09 13:20 | PC.NURSE ---
MD notified of right eye blurred vision, posterior head pressure, and dizziness. MD to bedside to evaluate. FS 111
--- NOTE | 2023-02-09 13:24 | HMH.EDGENADL ---
Discharge Plan Disposition Patient Disposition: Home, Self-Care Prescriptions Prescriptions: No Action fluticasone propionate 50 mcg/actuation spray,suspension 1 spray intranasal DAILY PRN (Reason: allergies) rosuvastatin 5 mg tablet 5 mg PO DAILY lisinopril-hydrochlorothiazide 20-12.5 mg tablet 1 tab PO DAILY Label Comments: TAKE ONE TABLET BY MOUTH EVERY DAY omeprazole 40 mg capsule,delayed release(DR/EC) 40 mg PO DAILY Label Comments: TAKE ONE CAPSULE BY MOUTH EVERY DAY levothyroxine 25 mcg tablet 25 mcg PO DAILY Label Comments: TAKE ONE TABLET BY MOUTH EVERY DAY Referrals Follow up/Referrals: Bárbara Tubbs MD [Primary Care Provider] - See instructions Activity Restrictions/Add. Instructions Additional Instructions/Restrictions: Please continue to follow-up with your primary care doctor and your wine steward/stewardess as previously instructed and return to the emergency department with any ongoing unrelenting neurologic symptoms. Clinical Impressions Clinical Impression: Complicated migraine Discharge ED Provider: Darshan Swain General Adult HPI General Chief complaint: Eye Problems Stated complaint: RT eye blurred, dizzy Time Seen by Provider: 02/09/23 13:24 History of Present Illness HPI narrative: Patient is a 38-year-old male presenting with sudden acute right vision disturbance and posterior neck and head pain. States that he recently was in the emergency department with numbness to his face his lips and everything above his mid chest area. Follow-up with cardiology where he had carotid duplex and further work-up and was told he had less than 50% stenosis of bilateral carotid arteries. He has been undergoing significant stress recently including multiple funerals of close friends and his 13-year-old daughter recently tried to commit suicide. States that he was actually doing well today was having lunch with his daughter and things are going well without any significant stress when the symptoms began. He describes his right eye as seeing a TV that has poor legal receptionist. Denies complete vision loss of any field of vision in his left eye vision is normal. No vascular imaging other than carotid duplex was done with recent visits. He denies any current chest pain or back pain but states he did have that with his last visit. Related Data Home Medications Medication Instructions Recorded Confirmed levothyroxine 25 mcg tablet 25 mcg PO DAILY Thyroid 01/25/23 02/09/23 lisinopril 20 1 tab PO DAILY High blood pressure 01/25/23 02/09/23 mg-hydrochlorothiazide 12.5 mg tablet omeprazole 40 mg capsule,delayed 40 mg PO DAILY Acid reflux 01/25/23 02/09/23 release fluticasone propionate 50 1 spray intranasal DAILY PRN 02/06/23 02/09/23 mcg/actuation nasal allergies spray,suspension rosuvastatin 5 mg tablet 5 mg PO DAILY Cholesterol 02/06/23 02/09/23 Allergies Allergy/AdvReac Type Severity Reaction Status Date / Time No Known Allergies Allergy Verified 02/06/23 14:34 [facility] Disclaimer: The information contained in this section may have been updated after the patient was seen, as this information can be updated by other users. Medical History GERD (gastroesophageal reflux disease) HTN (hypertension) Hypothyroid Social History (Updated 02/06/23 @ 14:36 by Lilian Castillo) Smoking Status: Former smoker smoking status stop date: 02/03/23 second hand exposure: Yes alcohol intake: never current occupational status: employed Travel in the last 8 weeks: None ROS Obtained: Yes All systems reviewed & no additional complaints except as documented Physical Exam General General appearance: alert Respiratory Respiratory exam: Present normal lung sounds bilaterally; Absent respiratory distress Cardiovascular Cardiovascular exam: Present regular rate; Absent tachycardia Neurological
--- NOTE | 2023-02-09 13:25 | PC.NURSE ---
Dr. Swain at BS for pt eval
[2023-02-09 13:31] LABS: POC Glucose,Bedside 111 (70-110)
--- NOTE | 2023-02-09 13:35 | CT_ITS ---
FINAL REPORT CLINICAL HISTORY: right neck pain, blurred R eye vision patient was not feeling well during scan, had to finish quickly, orientation of patient was not changed. images are are from bottom to top instead of the correct way, not able to repeat FINDINGS: Thin section axial CT images of the chest were obtained with contrast. 3D reformatted images were also obtained. This study was performed with techniques to keep radiation doses as low as reasonably achievable (ALARA). Individualized dose reduction techniques using automated exposure control or adjustment of mA and/or kV according to the patient''s size were employed. There is no evidence of pulmonary embolism. There is no evidence of thoracic aortic aneurysm or dissection. There is no evidence of mediastinal or hilar mass or adenopathy. There is no evidence of pulmonary mass or nodule. No localized inflammatory process is seen within the lungs. There is mild bibasilar atelectasis. Limited images of the upper abdomen are unremarkable. IMPRESSION: No evidence of pulmonary embolism. Mild bibasilar atelectasis. Reviewed, Interpreted and Dictated by Sujit Hastings III, MD Transcribed by Kim Addison Authenticated and [facility]
--- NOTE | 2023-02-09 13:35 | CT_ITS ---
FINAL REPORT TECHNIQUE: Multiple axial CT angiography images were performed from the foramen magnum to the vertex before and during IV contrast administration. This study was performed with techniques to keep radiation doses as low as reasonably achievable (ALARA). Individualized dose reduction techniques using automated exposure control or adjustment of mA and/or kV according to the patient's size were employed. CLINICAL HISTORY: rt neck pain, blurred rt eye vision FINDINGS: No acute intracranial hemorrhage or large acute cortical infarct. The brain volume is normal for the patient's age. Ventricles are of bracket normal in size and configuration. No midline shift. The basal cisterns are patent. CTA HEAD: The major intracranial arterial system is patent without hemodynamically significant stenosis or major vessel occlusion.No aneurysm is identified. IMPRESSION: No acute intracranial hemorrhage or large acute cortical infarct. No evidence of vascular injury, aneurysm, hemodynamically significant stenosis or major vessel occlusion of the intracranial arterial system. Reviewed, Interpreted and Dictated by Sujit Hastings III, MD Transcribed by Kim Addison Authenticated and [facility]
--- NOTE | 2023-02-09 13:35 | CT_ITS ---
FINAL REPORT TECHNIQUE: Thin section axial CT with IV contrast supplemented with multiplanar reconstruction under CT angiogram protocol. This study was performed with techniques to keep radiation doses as low as reasonably achievable (ALARA). Individualized dose reduction techniques using automated exposure control or adjustment of mA and/or kV according to the patient''s size were employed. NASCET criteria was utilized during interpretation. CLINICAL HISTORY: right neck pain, blurred R eye vision FINDINGS: Aortic arch: Arch shows no significant narrowing. Great vessel origins are widely patent. Right carotid: No significant stenosis is seen of the cervical common or internal carotid artery. Left carotid: No significant stenosis is seen of the cervical common or internal carotid artery. Vertebral: Left vertebral artery is dominant. No significant stenosis is present. IMPRESSION: No significant stenosis. Reviewed, Interpreted and Dictated by Sujit Hastings III, MD Transcribed by Kim Addison Authenticated and . [facility]
[2023-02-09 13:43] LABS: Basophils % 0.6 % (0.1-2.0); Eosinophils # 0.2 K/mm3 (0.0-0.4); Eosinophils % 2.4 % (0.1-12.0); Hematocrit 47.6 % (42.0-52.0); Hemoglobin 16.3 g/dL (14.1-18.0); Lymphocytes # 2.2 K/mm3 (0.7-4.5); Lymphocytes % 27.3 % (10-50); Mean Corpuscular HGB Conc 34.2 g/dL (31.8-35.4); Mean Corpuscular Hemoglobin 30.6 pg (27.0-31.2); Mean Corpuscular Volume 89.4 fl (80-94); Mean Platelet Volume 7.9 fl (7.4-10.4); Monocytes # 0.4 K/mm3 (0.1-1.0); Monocytes % 4.4 % (1.7-9.3); Neutrophils # 5.2 K/mm3 (1.8-7.8); Neutrophils % 65.4 % (37.0-80.0); Platelet Count 206 K/mm3 (142-424); Red Blood Count 5.33 M/mm3 (4.60-6.20); Red Cell Distribution Width 12.9 % (11.5-17.5)
--- NOTE | 2023-02-09 13:45 | ECG_ITS ---
APPROVED REPORT Exam: Resting ECG HR:70 bpm ECG Measurements Heart Rate 70 AXES VA 189 P 42 QRSd 99 QRS 21 QT 377 T 25 QTc 398 Conclusion SINUS RHYTHM NORMAL ECG UNCONFIRMED REPORT Electronically signed by : Sudhir Cueto MD 02/09/2023 16:16:02
[2023-02-09 13:51] LABS: Chloride 105 mmol/L (98-107)
[2023-02-09 13:52] LABS: Potassium 3.5 mmoL/L (3.5-5.1); Sodium 140 mmol/L (136-145)
[2023-02-09 13:54] LABS: Alanine Aminotransferase 38 U/L (12-78); Alkaline Phosphatase 97 U/L (38-126); Aspartate Amino Transferase 31 U/L (17-59); Bilirubin,Total 0.3 mg/dl (0.2-1.3); Blood Urea Nitrogen 16 mg/dl (9-20); Creatinine Clearance Estimated 142 mL/min (50-200); Estimated Glomerular Filt Rate 75 ml/min (>60); GFR (African American) 90 ML/MIN (>60)
[2023-02-09 13:55] LABS: Albumin Level 3.6 g/dl (3.5-5.0); Albumin/Globulin Ratio 1.1 (1.1-1.8); Anion Gap 11.5 mEq/L (5-15); Calcium 8.1 mg/dl (8.4-10.2); Carbon Dioxide 27 mmol/L (22.0-30.0); Globulin 3.4 g/dL (1.3-3.2); Glucose 111 mg/dl (74-100)
[2023-02-09 13:58] LABS: Activated Partial Thrombo Time 28.6 seconds (22.8-30.6); INR 0.96 (0.9-1.1); Prothrombin Time 10.4 seconds (10.1-12.5)
[2023-02-09 14:08] LABS: Troponin I < 0.01 ng/ml (0.00-0.034)
--- NOTE | 2023-02-09 14:25 | PC.NURSE ---
Rounded on patient; patient given warm blanket and turned off lights.
--- NOTE | 2023-02-09 15:02 | PC.NURSE ---
Rounded on patient; pt reports no needs at this time, call schuler within reach.
--- NOTE | 2023-02-09 16:02 | PC.NURSE ---
Rounded on patient. Residual right eye visual disturbance, however markedly improved. No other sx at this time. MD notified.
== END 2023-02-09 16:24 | disposition home or self-care (01) ==
PROVIDERS: Emergency Provider Student in an Organized Health Care Education/Training Program; PCP Family Medicine
DX: G44.59 Other complicated headache syndrome (principal); R42 Dizziness and giddiness; H53.8 Other visual disturbances; K21.9 Gastro-esophageal reflux disease without esophagitis; I10 Essential (primary) hypertension; E78.5 Hyperlipidemia, unspecified; Z87.891 Personal history of nicotine dependence
CPT/HCPCS: 70496; 70498; 71275; 80053; 82962; 84484; 85025; 85610; 85730; 93005; 96361; 96374; 96375; 99285

== ENCOUNTER → 2023-02-21 06:27 | Outpatient (CLI) | payer BC, SELFPAY ==
--- NOTE | 2023-02-21 | CA_ITS ---
APPROVED REPORT Exam: Exercise Treadmill Technologist: Susanna Resendez Ht: 6 ft 0 in Wt: 244 lbs BSA: 2.32 m2 HR: 60 bpm BP: 115/83 mmHg Rhythm: Normal sinus rhythm Indications: Shortness of Air, chest pain Medical History Medications: Omeprazole,,,,, Levothyroxine,,,,, Lisinopril/HCTZ,,,,, Ibuprofen,,,,, RoSUVASTATIN,,,,, FluTICASONE Propionate,,,,, Stress Test Details Test: Herbert HR Resting HR: 68 bpm Max Heart Rate (APMHR): 181 bpm Max HR Achieved: 165 bpm Target HR (85% APMHR): 154 bpm % of APMHR: 91 Recovery HR: 91 bpm HR response to stress: Normal HR response to stress BP Resting BP: 115.0/83.0 mmHg Max BP: 166.0/88.0 mmHg Recovery BP: 132.0/81.0 mmHg BP response to stress: Normal blood pressure response to stress. ECG Resting ECG: Normal sinus rhythm, baseline upsloping < 1mm ST elevation diffusely Stress ECG: < 0.[address] depression Arrhythmia: None Recovery ECG: Return to baseline within 3 minutes of recovery Recovery Arrhythmia: None Clinical Exercise duration: 09:00 min Highest Stage Achieved: Exercise capacity: 10.1 METs Overall Exercise Capacity for Age: Average Stress ECG Conclusion Patient walked 9:00 on Herbert Protocol, achieving a total of 10.1 METs. He exhibited average exercise capacity compared to age and sex matched peers. Test stopped due to shortness of air, leg fatigue. He denied any chest pain. Baseline ECG demonstrated normal sinus rhythm with < 1mm upsloping ST elevation diffusely. At peak stress, ECG demonstrated < 0.[address] depression. Conclusion: Non diagnostic ECG stress test due to baseline abnormalities. Myoview images reported separately. Test Summary REST . . . . . . . Sitting REST . . . . . . . Standing REST 03:52 0.0 0.0 68 . 115/ 83 . . Stage 1 01:00 10.0 1.7 87 . . . . Stage 1 02:00 10.0 1.7 91 . . . . Stage 1 03:00 10.0 1.7 97 . 136/ 90 . . Stage 2 01:00 12.0 2.5 107 . . . . Stage 2 02:00 12.0 2.5 113 . . . . Stage 2 03:00 12.0 2.5 119 . 166/ 88 . . Stage 3 01:00 14.0 3.4 135 . . . . Stage 3 . . . . . . . Myoview Injected Stage 3 02:00 14.0 3.4 151 . . . . Stage 3 03:00 14.0 3.4 164 . . . Stop exercise at 09:00 RECOVERY 01:00 0.0 0.0 132 . . . . RECOVERY 02:00 0.0 0.0 107 . 166/ 89 . . RECOVERY 03:00 0.0 0.0 94 . 154/ 84 . . RECOVERY 04:00 0.0 0.0 93 . 154/ 84 . . RECOVERY 05:00 0.0 0.0 90 . 132/ 81 . . RECOVERY 05:20 0.0 0.0 91 . 132/ 81 . . Electronically signed by : Anusha Saravia, 02/22/2023 09:14:08
--- NOTE | 2023-02-21 06:30 | NM_ITS ---
APPROVED REPORT Exam: Nuclear Stress Test Indication: CHEST PAIN..SOA..PALPITATIONS..SYNCOPE..FATIGUE Patient Location: Outpatient Stress Tech: Susanna Resendez [place] Tech:Radha JacksonLIZ RT(R)(N) Ht: 6 ft 0 in Wt: 250 lbs HR: 68 bpm BP: 115/83 mmHg BSA: 2.34 m2 TID: 1.01 History: CHEST PAIN..SOA..PALPITATIONS..SYNCOPE..FATIGUE Procedure: Patient exercised on Herbert protocol 9 minutes and sec, resting heart rate 68 bpm, resting blood pressure 115/83 mmHg, with exercise maximum heart rate achived was 165 bpm which is 85 % of the maximum predicted heart rate and blood pressure was 166/83 mmHg. Patient denied any complaint of chest pain. Patient has exercise capacity, achieved 10.1 METs of workload on treadmill, the blood pressure response to exercise was . Cardiac Stress and Resting SPECT Images: Cardiac Stress and Resting SPECT images were obtained using technetium 99m Myoview 31.5 mCi stress and 10.50 mCi at rest. This is a technically difficult test due to body habitus and the presence of significant overlying soft tissue in the raw images. This may affect the diagnostic interpretation of the study findings. Resting and stress imaging in both supine and prone positions demonstrate a large sized, moderate, fixed perfusion defect in the inferior LV wall, as well as large sized, mild, fixed perfusion defect in the anterior LV wall. Findings may represent soft tissue attenuation, but true perfusion defects cannot be ruled out due to technically difficult imaging. Gated imaging demonstrates normal global and regional LV systolic function. LVEF is calculated at 62%. Conclusion: This is a technically difficult test due to body habitus and the presence of significant overlying soft tissue in the raw images. This may affect the diagnostic interpretation of the study findings. Resting and stress imaging in both supine and prone positions demonstrate a large sized, moderate, fixed perfusion defect in the inferior LV wall, as well as large sized, mild, fixed perfusion defect in the anterior LV wall. Findings may represent soft tissue attenuation, but true perfusion defects cannot be ruled out due to technically difficult imaging. Gated imaging demonstrates normal global and regional LV systolic function. LVEF is calculated at 62%. Electronically signed by : Anusha Saravia, 02/22/2023 09:24:34
== END ==
LOC: RAD 06:28
PROVIDERS: PCP Family Medicine; Visit Provider Nurse Practitioner
DX: R00.2 Palpitations (principal); R06.02 Shortness of breath; R07.9 Chest pain, unspecified
CPT/HCPCS: 78452; 93017; 93306; A9502

== ENCOUNTER → 2023-03-06 10:18 | Outpatient (CLI) | payer BC, SELFPAY ==
--- NOTE | 2023-03-06 10:21 | US_ITS ---
FINAL REPORT CLINICAL HISTORY: THYROID NODULE FINDINGS: THYROID ULTRASOUND The right lobe of the thyroid is surgically absent. The left lobe of the thyroid measures 4.3 x 2.2 x 1.5 cm. The parenchyma shows normal echogenicity. There is a 4 x 3 x 2 mm left thyroid cystic nodule consistent with a Ti RADS 1. There is a 3 x 2 x 1 mm left thyroid nodule that is cystic consistent with a Ti RADS 1. IMPRESSION: Tiny benign colloid cysts. No follow-up recommended. Reviewed, Interpreted and Dictated by Sujit Hastings III, MD Transcribed by Rohan Almodovar Authenticated and [facility]
--- NOTE | 2023-03-06 10:21 | US_ITS ---
FINAL REPORT CLINICAL HISTORY: LYMPHADENOPATHY FINDINGS: NECK SOFT TISSUE ULTRASOUND The parotid and submandibular glands are unremarkable. There are small left neck lymph nodes. No mass is seen. IMPRESSION: Unremarkable ultrasound evaluation Reviewed, Interpreted and Dictated by Sujit Hastings III, MD Transcribed by Rohan Almodovar Authenticated and [facility]
== END ==
LOC: RAD 10:18
PROVIDERS: PCP Family Medicine; Visit Provider Physician Assistant
DX: E04.1 Nontoxic single thyroid nodule (principal); R59.0 Localized enlarged lymph nodes
CPT/HCPCS: 76536

== ENCOUNTER 2023-03-15 05:21 | Emergency (ER) | payer BC, SELFPAY ==
[2023-03-15 05:22] VITALS: BP 158/109; PULSE 79; RESP 18; TEMP 37.1; O2SAT 99; BMI 33.0
[2023-03-15 06:00] LABS: Strep Scrn Group A (Rapid) Negative (Negative)
--- NOTE | 2023-03-15 06:00 | HMH.EDGENADL ---
Discharge Plan Disposition Patient Disposition: Home, Self-Care Prescriptions Prescriptions: New amoxicillin 500 mg tablet 500 mg PO BID 10 Days Qty: 20 0RF No Action fluticasone propionate 50 mcg/actuation spray,suspension 1 spray intranasal DAILY PRN (Reason: allergies) rosuvastatin 5 mg tablet 5 mg PO DAILY omeprazole 40 mg capsule,delayed release(DR/EC) 40 mg PO DAILY Patient Comments: TAKE ONE CAPSULE BY MOUTH EVERY DAY levothyroxine 25 mcg tablet 25 mcg PO DAILY Patient Comments: TAKE ONE TABLET BY MOUTH EVERY DAY lisinopril-hydrochlorothiazide 20-12.5 mg tablet 1 tab PO DAILY Patient Comments: TAKE ONE TABLET BY MOUTH EVERY DAY loratadine 10 mg tablet 10 mg PO DAILY Patient Comments: TAKE ONE TABLET BY MOUTH EVERY DAY Referrals Follow up/Referrals: Bárbara Tubbs MD [Primary Care Provider] - See instructions Activity Restrictions/Add. Instructions Additional Instructions/Restrictions: Take amoxicillin twice daily for 10 days. If you have any other concerning signs or symptoms or worsening signs or symptoms, return to the ER for further evaluation. Take Tylenol 1000 mg every 6 hours (4 times daily) and ibuprofen 400 mg every 6 hours (4 times daily) as needed with food and water to prevent GI upset and kidney damage. Clinical Impressions Clinical Impression: Uvulitis Discharge ED Provider: Gavino Redding General Adult HPI General Chief complaint: PAIN Stated complaint: Throat swelling Time Seen by Provider: 03/15/23 05:24 Mode of Arrival: Ambulatory Source of Information: Patient Limitations: No Limitations Description of Symptoms (Recalled from ER Triage Doc. by RN): pt woke up @ 5am and felt like he couldn't swallow and throat was closing. History of Present Illness HPI narrative: This is a 38-year-old male with history of hypertension, hypothyroidism presenting with throat discomfort. Patient states that he woke up around 5 AM and felt as if his throat was dry and something was stuck in it. He tried to drink water, realized his throat was swollen and was having difficulty swallowing. He looked in the mirror and realized that he had swelling in the back of his throat with associated redness, so came to the emergency department for further evaluation. Patient denies inability to swallow, difficulty breathing, wheezing or stridor, difficulty or pain with range of motion of neck, fevers or chills, nausea or vomiting, or any other concerns. Patient has not had anything like this in the past and has no sick contacts he knows of. Fully vaccinated. Related Data Home Medications Medication Instructions Recorded Confirmed levothyroxine 25 mcg tablet 25 mcg PO DAILY Thyroid 01/25/23 03/15/23 omeprazole 40 mg capsule,delayed 40 mg PO DAILY Acid reflux 01/25/23 03/15/23 release fluticasone propionate 50 1 spray intranasal DAILY PRN 02/06/23 03/15/23 mcg/actuation nasal allergies spray,suspension rosuvastatin 5 mg tablet 5 mg PO DAILY Cholesterol 02/06/23 03/15/23 lisinopril 20 1 tab PO DAILY High blood pressure 03/06/23 03/15/23 mg-hydrochlorothiazide 12.5 mg tablet loratadine 10 mg tablet 10 mg PO DAILY Allergy Symptoms 03/15/23 03/15/23 Previous Rx's Medication Instructions Recorded amoxicillin 500 mg tablet 500 mg PO BID 10 days #20 tabs 03/15/23 Allergies Allergy/AdvReac Type Severity Reaction Status Date / Time No Known Allergies Allergy Verified 03/06/23 15:14 [facility] Disclaimer: The information contained in this section may have been updated after the patient was seen, as this information can be updated by other users. Medical History GERD (gastroesophageal reflux disease) HTN (hypertension) Hypothyroid Social History Smoking Status: Current every day smoker tobacco type: cigarettes packs
[2023-03-15 06:12] VITALS: BP 132/89; PULSE 62; RESP 18; TEMP 37.1; O2SAT 97
== END 2023-03-15 06:22 | disposition home or self-care (01) ==
PROVIDERS: Emergency Provider Emergency Medicine; PCP Family Medicine
DX: R22.0 Localized swelling, mass and lump, head (principal); R13.10 Dysphagia, unspecified; I10 Essential (primary) hypertension; E03.9 Hypothyroidism, unspecified; K21.9 Gastro-esophageal reflux disease without esophagitis; F17.210 Nicotine dependence, cigarettes, uncomplicated
CPT/HCPCS: 87430; 96374; 99284

== ENCOUNTER 2023-03-21 06:39 | Day surgery (SDC) | payer BC, SELFPAY ==
[2023-03-21] VITALS (13 sets, daily range): BP systolic 99–129; BP diastolic 70–79; PULSE 58–96; RESP 16–18; TEMP 36.6–37; O2SAT 92–97; BMI 33.9
--- NOTE | 2023-03-21 07:05 | IR_ITS ---
APPROVED REPORT Patient Location: [facility]: LIZ Eldridge RT (R) PROCEDURES Left heart catheterization Left ventriculogram Selective coronary angiogram INDICATION Abnormal Myoview, Angina pectoris, Informed consent was obtained prior to the procedure. COMPLICATIONS None Estimated Blood Loss: Less than 10 mls TECHNIQUE One percent lidocaine used to anesthetize the right anterior aspect of the wrist. The right radial artery was accessed via the Seldinger technique. A 6 Italian sheath was placed in the right radial artery. 150 mg magnesium sulfate, 800 mcg of nitroglycerin, 1mg Lidocaine and 5000 U Heparin were given through the arterial sheath. The papa catheter was also used to perform left heart catheterization, left ventriculogram and selective coronary angiogram. At the end of the procedure the sheath was removed good hemostasis was achieved using Traclet band, patient was transferred to the postop holding area in stable condition. ANGIOGRAPHIC RESULTS The left main artery Normal The left anterior descending artery Without atherosclerotic plaque throughout its entire course however SHAHBAZ II flow was initially present which improved to SHAHBAZ-3 flow with subsequent injections The circumflex artery Large nondominant and normal The right coronary artery Dominant normal The MICHAEL ventriculogram reveals Normal 65% The left ventricular end-diastolic pressure 10 mmHg IMPRESSION Slow flow down the LAD consistent with endothelial dysfunction No angiographic evidence of atherosclerotic plaque with otherwise normal coronary arteries Normal ejection fraction Normal left ventricular end-diastolic pressure PLAN 1. Treatment of endothelial dysfunction 2. Risk factor modification Electronically signed by : Driss Mae MD 03/21/2023 08:37:36
[2023-03-21 07:41] LABS: Basophils # 0.1 K/mm3 (0-0.2); Basophils % 0.6 % (0.1-2.0); Eosinophils # 0.3 K/mm3 (0.0-0.4); Eosinophils % 2.8 % (0.1-12.0); Hematocrit 52.3 % (42.0-52.0); Hemoglobin 16.9 g/dL (14.1-18.0); Lymphocytes # 2.2 K/mm3 (0.7-4.5); Lymphocytes % 24.1 % (10-50); Mean Corpuscular HGB Conc 32.3 g/dL (31.8-35.4); Mean Corpuscular Volume 92.8 fl (80-94); Mean Platelet Volume 7.9 fl (7.4-10.4); Monocytes # 0.4 K/mm3 (0.1-1.0); Monocytes % 4.1 % (1.7-9.3); Neutrophils # 6.3 K/mm3 (1.8-7.8); Neutrophils % 68.4 % (37.0-80.0); Platelet Count 215 K/mm3 (142-424); Red Blood Count 5.64 M/mm3 (4.60-6.20); Red Cell Distribution Width 13.6 % (11.5-17.5); White Blood Count 9.2 K/mm3 (4.8-10.8)
[2023-03-21 07:52] LABS: Anion Gap 9.8 mEq/L (5-15); Blood Urea Nitrogen 16 mg/dl (9-20); Calcium 8.8 mg/dl (8.4-10.2); Carbon Dioxide 28 mmol/L (22.0-30.0); Chloride 108 mmol/L (98-107); Creatinine Clearance Estimated 145 mL/min (50-200); Estimated Glomerular Filt Rate 75 ml/min (>60); GFR (African American) 90 ML/MIN (>60); Glucose 113 mg/dl (74-100); Potassium 3.8 mmoL/L (3.5-5.1); Sodium 142 mmol/L (136-145)
== END 2023-03-21 11:28 | disposition home or self-care (01) ==
PROVIDERS: PCP Family Medicine; Visit Provider Internal Medicine
DX: I10 Essential (primary) hypertension; R94.39 Abnormal result of other cardiovascular function study; F17.210 Nicotine dependence, cigarettes, uncomplicated; I25.118 Atherosclerotic heart disease of native coronary artery with other forms of angina pectoris; E03.9 Hypothyroidism, unspecified; Z87.891 Personal history of nicotine dependence; Z79.899 Other long term (current) drug therapy
CPT/HCPCS: 80048; 85025; 93458; 99152; C1725; C1769; J1644; Q9967

== ENCOUNTER → 2023-03-27 12:32 | Outpatient (CLI) | payer BC, SELFPAY ==
--- NOTE | 2023-03-27 12:36 | CT_ITS ---
FINAL REPORT TECHNIQUE: Multiple axial CT sections were performed from the foramen magnum to the vertex. Coronal reformatted images were also obtained. Precontrast and postcontrast injection images were obtained. This study was performed with technique to keep radiation doses as low as reasonably achievable, (ALARA). Individualized dose reduction techniques using automated exposure control or adjustment of mA and/or kV according to the patient size were employed. CLINICAL HISTORY: ALTERED MENTAL STATUS, syncope COMPARISON: 02/09/2023 FINDINGS: The ventricles are normal in size. There is no evidence of hemorrhage. No masses are identified. No extra-axial fluid collection is seen. The sinuses are normal. No osseous abnormality is seen on the bone window images. Postcontrast images demonstrate no abnormal enhancement. IMPRESSION: Unremarkable CT of the head with and without contrast. Reviewed, Interpreted and Dictated by Sujit Hastings III, MD Transcribed by Kristen Nixon Authenticated and [facility]
== END ==
PROVIDERS: PCP Family Medicine; Visit Provider Nurse Practitioner Family
DX: R41.82 Altered mental status, unspecified (principal)
CPT/HCPCS: 70470; Q9966

== ENCOUNTER → 2023-04-03 15:17 | Outpatient (CLI) | payer BC, SELFPAY ==
[2023-04-03 15:53] LABS: Basophils % 0.4 % (0.1-2.0); Eosinophils # 0.4 K/mm3 (0.0-0.4); Eosinophils % 4.5 % (0.1-12.0); Hemoglobin 14.4 g/dL (14.1-18.0); Lymphocytes # 2.5 K/mm3 (0.7-4.5); Lymphocytes % 30.8 % (10-50); Mean Corpuscular HGB Conc 34.4 g/dL (31.8-35.4); Mean Corpuscular Hemoglobin 30.6 pg (27.0-31.2); Monocytes # 0.3 K/mm3 (0.1-1.0); Monocytes % 3.8 % (1.7-9.3); Neutrophils % 60.5 % (37.0-80.0); Platelet Count 215 K/mm3 (142-424); Red Blood Count 4.72 M/mm3 (4.60-6.20); Red Cell Distribution Width 13.5 % (11.5-17.5); White Blood Count 8.2 K/mm3 (4.8-10.8)
[2023-04-03 17:05] LABS: Free T4 (Free Thyroxine) 0.92 ng/dl (0.78-2.19)
[2023-04-03 17:06] LABS: Anion Gap 10.1 mEq/L (5-15); Bilirubin,Total 0.3 mg/dl (0.2-1.3); Blood Urea Nitrogen 15 mg/dl (9-20); Calcium 8.3 mg/dl (8.4-10.2); Carbon Dioxide 26 mmol/L (22.0-30.0); Chloride 110 mmol/L (98-107); Estimated Glomerular Filt Rate 83 ml/min (>60); GFR (African American) 101 ML/MIN (>60); Glucose 98 mg/dl (74-100); Potassium 4.1 mmoL/L (3.5-5.1); Sodium 142 mmol/L (136-145)
[2023-04-03 17:07] LABS: Alanine Aminotransferase 34 U/L (12-78); Albumin Level 3.5 g/dl (3.5-5.0); Alkaline Phosphatase 99 U/L (38-126); Aspartate Amino Transferase 26 U/L (17-59); Bilirubin,Indirect 0.3 mg/dL (0.0-0.9); Bilirubin,Unconjugated 0.4 mg/dL (0.0-1.1); Chol/HDL Ratio 6.7 (1-3.5); Cholesterol 281 mg/dl (140-200); HDL Cholesterol 42 mg/dl (40-60); Total Protein,Serum 6.5 g/dl (6.3-8.2); Triglycerides 384 mg/dl (30-150); VLDL Cholesterol 77 mg/dL (0-40)
[2023-04-03 17:19] LABS: Direct LDL Cholesterol 152.59 mg/dL (100-129)
[2023-04-03 17:36] LABS: Thyroid Stimulating Hormone 5.48 uIU/mL (0.465-4.68)
== END ==
PROVIDERS: PCP Family Medicine; Visit Provider Internal Medicine
DX: I25.10 Atherosclerotic heart disease of native coronary artery without angina pectoris (principal); R06.00 Dyspnea, unspecified; I63.9 Cerebral infarction, unspecified; I11.9 Hypertensive heart disease without heart failure; Z79.899 Other long term (current) drug therapy
CPT/HCPCS: 36415; 80048; 80061; 80076; 84439; 84443; 85025

== ENCOUNTER → 2023-04-23 15:04 | Outpatient (CLI) | payer BC, SELFPAY ==
[2023-04-23 17:12] LABS: Calcium 8.6 mg/dl (8.4-10.2); Magnesium 1.7 mg/dl (1.6-2.3)
[2023-04-23 17:25] LABS: Intact Parathyroid Hormone 104.9 pg/mL (7.5-53.5)
[2023-04-23 17:29] LABS: Free T4 (Free Thyroxine) 0.94 ng/dl (0.78-2.19)
[2023-04-23 17:43] LABS: Thyroid Stimulating Hormone 4.85 uIU/mL (0.465-4.68)
== END ==
PROVIDERS: PCP Family Medicine; Visit Provider Otolaryngology
DX: R42 Dizziness and giddiness (principal)
CPT/HCPCS: 36415; 82310; 83735; 83970; 84439; 84443

== ENCOUNTER 2023-06-10 16:01 | Emergency (ER) | payer BC, SELFPAY ==
[2023-06-10 16:02] VITALS: BP 168/113; PULSE 79; RESP 18; TEMP 36.9; O2SAT 95; BMI 5174.9
[2023-06-10 16:30] VITALS: BP 161/112; PULSE 84; O2SAT 95
--- NOTE | 2023-06-10 16:42 | HMH.EDGENADL ---
Discharge Plan Disposition Patient Disposition: Home, Self-Care Chief Complaint: Recheck/Abnormal Lab/Rx Prescriptions Prescriptions: No Action amitriptyline 10 mg tablet 10 mg PO HS Qty: 30 1RF Nurtec ODT 75 mg tablet,disintegrating 75 mg PO ONCE PRN (Reason: migraine headache) Qty: 10 5RF Rx Instructions: Take 75 mg, 1 tablet, at onset of headache or prodromal symptoms. Max dose 75 mg in 24 hours. meclizine 25 mg tablet 25 mg PO BID PRN (Reason: .) Patient Comments: TAKE ONE TABLET BY MOUTH TWICE DAILY NEEDED irbesartan 300 mg tablet 300 mg PO DAILY omeprazole 40 mg capsule,delayed release(DR/EC) 40 mg PO DAILY Patient Comments: TAKE ONE CAPSULE BY MOUTH EVERY DAY Referrals Follow up/Referrals: Bárbara Tubbs MD [Primary Care Provider] - See instructions Activity Restrictions/Add. Instructions Additional Instructions/Restrictions: At this time is felt you are safe to be discharged home. If new or worsening symptoms please do not hesitate to return the emergency department. Please follow-up with your family doctor for modification of your blood pressure medications as discussed. Clinical Impressions Clinical Impression: Elevated blood pressure reading, Headache Discharge ED Provider: Justen Fuentes General Adult HPI General Chief complaint: Recheck/Abnormal Lab/Rx Stated complaint: high BP Time Seen by Provider: 06/10/23 16:23 Mode of Arrival: Ambulatory Source of Information: Patient Limitations: No Limitations Description of Symptoms (Recalled from ER Triage Doc. by RN): pt states his blood pressure has been elevated for 4 days and he has had a headache at the base of his neck as well, states he was started on a new bp med a few months ago, states it has been hard to concentrate his vision since bp has been elevated, also reports increased stress lately History of Present Illness HPI narrative: Patient is a 38-year-old male with past medical history of thyroid nodule status post partial thyroidectomy, high blood pressure who presents emergency department for evaluation of elevated blood pressure. Patient states he has had a headache at the back of his head, no true visual blurriness, denies chest pain, other acute complaints at this time. Due to persistent elevated blood pressure he presents here for continued evaluation. Patient's been compliant with his antihypertensives which have been prescribed to him. Related Data Home Medications Medication Instructions Recorded Confirmed omeprazole 40 mg capsule,delayed 40 mg PO DAILY Acid reflux 01/25/23 06/10/23 release irbesartan 300 mg tablet 300 mg PO DAILY 04/23/23 06/10/23 meclizine 25 mg tablet 25 mg PO BID PRN . 04/23/23 06/10/23 Previous Rx's Medication Instructions Recorded amitriptyline 10 mg tablet 10 mg PO HS headache prevention 05/31/23 #30 tabs rimegepant 75 mg disintegrating 75 mg PO ONCE PRN migraine 05/31/23 tablet (Nurtec ODT) headache #10 tabs Allergies Allergy/AdvReac Type Severity Reaction Status Date / Time No Known Allergies Allergy Verified 06/10/23 16:14 [facility] Disclaimer: The information contained in this section may have been updated after the patient was seen, as this information can be updated by other users. Medical History (Updated 06/10/23 @ 18:15 by Justen Fuentes MD) GERD (gastroesophageal reflux disease) HTN (hypertension) Hyperparathyroidism Hypertrophy of uvula Hypocalcemia Hypothyroid Impacted cerumen of left ear Obstructive sleep apnea Tinnitus Surgical History (Updated 05/28/23 @ 11:01 by Justine Leslie) H/O partial thyroidectomy Family History (Updated 05/28/23 @ 11:00 by Justine Leslie) Other Stroke Social History (Updated 05/28/23 @ 11:02 by Justine Leslie) Smoking Status: Former smoker smoking status stop date: 02/03/23 second hand exposure: Yes alcohol intake: never substance use type: denies u
[2023-06-10 17:00] VITALS: BP 150/104; PULSE 84; O2SAT 95
[2023-06-10 17:00] LABS: Basophils % 0.5 % (0.1-2.0); Eosinophils # 0.3 K/mm3 (0.0-0.4); Eosinophils % 3.4 % (0.1-12.0); Hematocrit 44.7 % (42.0-52.0); Hemoglobin 16.2 g/dL (14.1-18.0); Lymphocytes # 2.6 K/mm3 (0.7-4.5); Lymphocytes % 30.6 % (10-50); Mean Corpuscular HGB Conc 36.3 g/dL (31.8-35.4); Mean Corpuscular Hemoglobin 32.9 pg (27.0-31.2); Mean Corpuscular Volume 90.8 fl (80-94); Monocytes # 0.3 K/mm3 (0.1-1.0); Monocytes % 3.4 % (1.7-9.3); Neutrophils # 5.3 K/mm3 (1.8-7.8); Neutrophils % 62.2 % (37.0-80.0); Platelet Count 193 K/mm3 (142-424); Red Blood Count 4.92 M/mm3 (4.60-6.20); Red Cell Distribution Width 13.1 % (11.5-17.5); White Blood Count 8.6 K/mm3 (4.8-10.8)
[2023-06-10 17:10] LABS: Anion Gap 8.6 mEq/L (5-15); Blood Urea Nitrogen 13 mg/dl (9-20); Calcium 8.3 mg/dl (8.4-10.2); Carbon Dioxide 29 mmol/L (22.0-30.0); Chloride 107 mmol/L (98-107); Estimated Glomerular Filt Rate 108 ml/min (>60); GFR (African American) 130 ML/MIN (>60); Glucose 115 mg/dl (74-100); Potassium 3.6 mmoL/L (3.5-5.1); Sodium 141 mmol/L (136-145)
--- NOTE | 2023-06-10 17:11 | PC.NURSE ---
pt bp is high nurse aware
[2023-06-10 17:30] VITALS: BP 140/92; PULSE 86; RESP 16; O2SAT 96
[2023-06-10 18:21] VITALS: BP 139/78; PULSE 84; RESP 20; TEMP 36.9; O2SAT 96
== END 2023-06-10 18:23 | disposition home or self-care (01) ==
PROVIDERS: Emergency Provider Emergency Medicine; PCP Family Medicine
DX: R51.9 Headache, unspecified (principal); I10 Essential (primary) hypertension; E21.3 Hyperparathyroidism, unspecified; K21.9 Gastro-esophageal reflux disease without esophagitis; G47.33 Obstructive sleep apnea (adult) (pediatric); H93.19 Tinnitus, unspecified ear; Z87.891 Personal history of nicotine dependence
CPT/HCPCS: 80048; 84443; 85025; 99283

== ENCOUNTER → 2023-06-18 12:52 | Outpatient (CLI) | payer BC, SELFPAY ==
--- NOTE | 2023-06-18 12:52 | MR_ITS ---
FINAL REPORT CLINICAL HISTORY: Persistent headaches, tinnitus, dizziness FINDINGS: Multiplanar MR imaging of the brain was performed without and with contrast. There is no evidence of intracranial hemorrhage or mass. No abnormal extra-axial fluid collection is seen. The ventricular size is within normal limits. There is no evidence of shift of the midline structures. The posterior fossa and brainstem have an unremarkable appearance. No area of abnormal restricted diffusion is identified. No abnormal contrast enhancement is seen. Normal major vessel vascular flow voids are noted. IMPRESSION: No acute intracranial abnormality identified. Reviewed, Interpreted and Dictated by Sujit Hastings III, MD Transcribed by Analisa Jha Authenticated and [facility]
== END ==
PROVIDERS: PCP Family Medicine; Visit Provider Nurse Practitioner Family
DX: R42 Dizziness and giddiness (principal); G43.909 Migraine, unspecified, not intractable, without status migrainosus; H53.9 Unspecified visual disturbance; E21.3 Hyperparathyroidism, unspecified; I10 Essential (primary) hypertension; F39 Unspecified mood [affective] disorder; G89.29 Other chronic pain; G47.33 Obstructive sleep apnea (adult) (pediatric); R06.83 Snoring; Z87.898 Personal history of other specified conditions
CPT/HCPCS: 70553; A9576

== ENCOUNTER 2023-06-19 09:46 | Emergency (ER) | payer BC, SELFPAY ==
[2023-06-19 09:47] VITALS: BP 152/100; PULSE 76; RESP 18; TEMP 36.4; O2SAT 97; BMI 35.9
--- NOTE | 2023-06-19 10:19 | HMH.EDGENADL ---
Discharge Plan Disposition Patient Disposition: Home, Self-Care Prescriptions Prescriptions: New ondansetron HCl 4 mg tablet 4 mg PO Q8H PRN (Reason: nausea and vomiting) 5 Days Qty: 30 0RF No Action amitriptyline 10 mg tablet 10 mg PO HS Qty: 30 1RF Nurtec ODT 75 mg tablet,disintegrating 75 mg PO ONCE PRN (Reason: migraine headache) Qty: 10 5RF Rx Instructions: Take 75 mg, 1 tablet, at onset of headache or prodromal symptoms. Max dose 75 mg in 24 hours. meclizine 25 mg tablet 25 mg PO BID PRN (Reason: .) Patient Comments: TAKE ONE TABLET BY MOUTH TWICE DAILY NEEDED irbesartan 300 mg tablet 300 mg PO DAILY omeprazole 40 mg capsule,delayed release(DR/EC) 40 mg PO DAILY Patient Comments: TAKE ONE CAPSULE BY MOUTH EVERY DAY Referrals Follow up/Referrals: Bárbara Tubbs MD [Primary Care Provider] - See instructions Activity Restrictions/Add. Instructions Additional Instructions/Restrictions: Please take meclizine as previously prescribed. I am sending a new prescription for Zofran for you to take for nausea. Please continue to follow along with your primary care provider and your specialist. Given your symptoms and negative work-up to this point, I am concerned that you may have M?ni?re's disease, a build up of fluid in the inner ears. Clinical Impressions Clinical Impression: Bilateral tinnitus, Dizzy spells Discharge ED Provider: Lyndon Smith General Adult HPI General Chief complaint: Dizziness Stated complaint: PRESSURE IN HEAD FOR DAYS Time Seen by Provider: 06/19/23 09:53 Mode of Arrival: Ambulatory Source of Information: Patient Limitations: No Limitations Description of Symptoms (Recalled from ER Triage Doc. by RN): Patient reports pressure, dizziness and nausea for three days. States he has been seen multiple times for this and that they just play it off to a migraine. State he did have an mri of his head yesterday. History of Present Illness HPI narrative: 38-year-old male, history of chronic intermittent tinnitus and vertigo, presents with recurrence of symptoms. He reports symptoms have been intermittent over the last couple of days, reports that he had sudden worsening this morning and felt unable to drive to work. This is why he presented to the ER. He is being evaluated for the symptoms on an outpatient basis. He had a MRI of the brain yesterday which showed no abnormalities. Patient previously took meclizine but has not taken it in some time. Patient reports that he has had extensive cardiac evaluation for the symptoms as well. He has had thyroid issues in the past, was previously on thyroid replacement but stopped taking it recently. He reports that he is being referred to [facility] for hyperparathyroidism. Patient has had recent labs done as well. He denies any current chest pain abdominal pain shortness of breath, no focal numbness or weakness. Related Data Home Medications Medication Instructions Recorded Confirmed omeprazole 40 mg capsule,delayed 40 mg PO DAILY Acid reflux 01/25/23 06/10/23 release irbesartan 300 mg tablet 300 mg PO DAILY 04/23/23 06/10/23 meclizine 25 mg tablet 25 mg PO BID PRN . 04/23/23 06/10/23 Previous Rx's Medication Instructions Recorded amitriptyline 10 mg tablet 10 mg PO HS headache prevention 05/31/23 #30 tabs rimegepant 75 mg disintegrating 75 mg PO ONCE PRN migraine 05/31/23 tablet (Nurtec ODT) headache #10 tabs ondansetron HCl 4 mg tablet 4 mg PO Q8H PRN nausea and 06/19/23 vomiting 5 days #30 tabs Allergies Allergy/AdvReac Type Severity Reaction Status Date / Time No Known Allergies Allergy Verified 06/10/23 16:14 [facility] Disclaimer: The information contained in this section may have been updated after the patient was seen, as this information can be updated by other users. Medical History (Updated 06/19/23 @ 10:56 by Lyndon Smith MD) GERD (gastroesop
[2023-06-19 10:35] VITALS: BP 137/93; PULSE 76; O2SAT 97
[2023-06-19 11:00] VITALS: BP 130/91; PULSE 78; RESP 18; TEMP 36.6; O2SAT 95
== END 2023-06-19 11:00 | disposition home or self-care (01) ==
PROVIDERS: Emergency Provider Emergency Medicine; PCP Family Medicine
DX: H93.13 Tinnitus, bilateral (principal); R42 Dizziness and giddiness; K21.9 Gastro-esophageal reflux disease without esophagitis; I10 Essential (primary) hypertension; G47.33 Obstructive sleep apnea (adult) (pediatric)
CPT/HCPCS: 99283

== ENCOUNTER → 2023-07-11 13:16 | Outpatient (CLI) | payer BC, SELFPAY ==
[2023-07-11 14:55] LABS: Albumin Level 3.6 g/dl (3.5-5.0); Anion Gap 11.5 mEq/L (5-15); Blood Urea Nitrogen 16 mg/dl (9-20); Calcium 8.7 mg/dl (8.4-10.2); Carbon Dioxide 26 mmol/L (22.0-30.0); Chloride 105 mmol/L (98-107); Estimated Glomerular Filt Rate 83 ml/min (>60); GFR (African American) 101 ML/MIN (>60); Glucose 154 mg/dl (74-100); Magnesium 1.8 mg/dl (1.6-2.3); Phosphorous 3.2 mg/dl (2.5-4.5); Potassium 3.5 mmoL/L (3.5-5.1); Sodium 139 mmol/L (136-145)
[2023-07-11 15:06] LABS: 25-OH Vitamin D, Total 22.3 ng/mL (30-100); Intact Parathyroid Hormone 68.4 pg/mL (7.5-53.5)
[2023-07-11 15:08] LABS: Free T4 (Free Thyroxine) 1.24 ng/dl (0.78-2.19)
[2023-07-11 15:24] LABS: Thyroid Stimulating Hormone 2.11 uIU/mL (0.465-4.68)
== END ==
PROVIDERS: PCP Family Medicine; Visit Provider Specialist
DX: E83.51 Hypocalcemia (principal); E03.9 Hypothyroidism, unspecified
CPT/HCPCS: 36415; 80069; 82306; 83735; 83970; 84439; 84443

== ENCOUNTER 2023-07-23 06:34 | Emergency (ER) | payer BC, SELFPAY ==
[2023-07-23 06:35] VITALS: BP 142/96; PULSE 77; RESP 18; TEMP 36.8; O2SAT 96; BMI 35.9
--- NOTE | 2023-07-23 06:46 | HMH.EDGENADL ---
Discharge Plan Disposition Patient Disposition: Home, Self-Care Prescriptions Prescriptions: No Action lisinopril-hydrochlorothiazide 20-12.5 mg tablet 1 tab PO DAILY Patient Comments: TAKE ONE TABLET BY MOUTH EVERY DAY fluoxetine 10 mg capsule 10 mg PO DAILY Patient Comments: TAKE ONE CAPSULE BY MOUTH EVERY DAY Referrals Follow up/Referrals: Bárbara Tubbs MD [Primary Care Provider] - See instructions Activity Restrictions/Add. Instructions Additional Instructions/Restrictions: Please follow-up with your primary care provider. Please return to the emergency department if you develop any new or worsening symptoms or become concerned for your health. Clinical Impressions Clinical Impression: Encounter for general medical examination Discharge ED Provider: Lyndon Smith Adult HPI General Chief complaint: Weakness Stated complaint: weakness, poss dehydration Time Seen by Provider: 07/23/23 06:36 Mode of Arrival: Ambulatory Source of Information: Patient Limitations: No Limitations Description of Symptoms (Recalled from ER Triage Doc. by RN): Patient states he was sick last week where he was unable to get up out of bed for four days. Complaints of hot flashes and unable to concentrate when he got up for work this morning. Concerned he may be dehydrated. Patient denies any fevers, nausea, vomiting, or diarrhea. History of Present Illness HPI narrative: 38-year-old male, history as reported below, presents for concern for dehydration. He reports that he has had a cold since and has been sleeping at home. He feels like he was not drinking quite as much. He was driving to work this morning and felt a little lightheaded briefly and came to the ER to get checked out instead of going to work. He denies productive cough, reports he has a sinus congestion. Reports that he does have some intermittent nausea, but does not currently have any nausea. He reports that he is not short of breath nor does he have chest pain. He denies fever at home. Related Data Home Medications Medication Instructions Recorded Confirmed fluoxetine 10 mg capsule 10 mg PO DAILY 07/23/23 07/23/23 lisinopril 20 1 tab PO DAILY 07/23/23 07/23/23 mg-hydrochlorothiazide 12.5 mg tablet Allergies Allergy/AdvReac Type Severity Reaction Status Date / Time No Known Allergies Allergy Verified 06/10/23 16:14 [facility] Disclaimer: The information contained in this section may have been updated after the patient was seen, as this information can be updated by other users. Medical History (Updated 07/23/23 @ 06:54 by Lyndon Smith MD) GERD (gastroesophageal reflux disease) HTN (hypertension) Hyperparathyroidism Hypertrophy of uvula Hypocalcemia Hypothyroid Impacted cerumen of left ear Obstructive sleep apnea Tinnitus Surgical History (Updated 05/28/23 @ 11:01 by Justine Leslie) H/O partial thyroidectomy Family History (Updated 05/28/23 @ 11:00 by Justine Leslie) Other Stroke Social History (Updated 05/28/23 @ 11:02 by Justine Leslie) Smoking Status: Former smoker smoking status stop date: 02/03/23 second hand exposure: Yes alcohol intake: never substance use type: denies use current occupational status: employed Travel in the last 8 weeks: None household members: spouse housing: house marital status: ROS Obtained: Yes All systems reviewed & no additional complaints except as documented Physical Exam General General appearance: alert and in no apparent distress Head Head exam: atraumatic and normocephalic Eye Eye exam: Present normal appearance, PERRL and EOMI ENT ENT exam: Present mucous membranes moist, normal external ear exam and other (Mild cobblestoning of the posterior oropharynx consistent with viral illness) Neck Neck exam: Present normal inspection and full ROM Chest Chest inspection: Present normal inspection and symmetric
[2023-07-23 06:51] LABS: POC Glucose,Bedside 169 (70-110)
[2023-07-23 06:55] VITALS: BP 142/96; PULSE 73; RESP 18; TEMP 36.8
== END 2023-07-23 06:59 | disposition home or self-care (01) ==
PROVIDERS: Emergency Provider Emergency Medicine; PCP Family Medicine
DX: R42 Dizziness and giddiness (principal); R53.1 Weakness; I10 Essential (primary) hypertension; E03.9 Hypothyroidism, unspecified; K21.9 Gastro-esophageal reflux disease without esophagitis; Z87.891 Personal history of nicotine dependence
CPT/HCPCS: 82962; 99283

== ENCOUNTER → 2023-07-23 16:32 | Outpatient (CLI) | payer BC, SELFPAY ==
[2023-07-23 16:38] LABS: Adenovirus,PCR Not Detected (NotDetected); Coronavirus 229E Not Detected (NotDetected); Coronavirus NL63 Not Detected (NotDetected); Coronavirus OC43 Not Detected (NotDetected); Coronovirus HKU1,PCR Not Detected (NotDetected); Human Metapneumovirus Not Detected (NotDetected); Influenza A, PCR Not Detected (NotDetected); Influenza AH1, 2009 Not Detected (NotDetected); Influenza AH1, PCR Not Detected (NotDetected); Influenza AH3,PCR Not Detected (NotDetected); Influenza B, PCR Not Detected (NotDetected); Parainfluenza 1, PCR Not Detected (NotDetected); Parainfluenza 2, PCR Not Detected (NotDetected); Parainfluenza 3, PCR Not Detected (NotDetected); Parainfluenza 4, PCR Not Detected (NotDetected); Respiratory Syncytial Virus Not Detected (NotDetected); Rhinovirus/Enterovirus Not Detected (NotDetected)
[2023-07-23 19:03] LABS: Coronavirus 19, PCR Detected (NotDetected)
== END ==
PROVIDERS: PCP Family Medicine; Visit Provider Nurse Practitioner Family
DX: J06.9 Acute upper respiratory infection, unspecified (principal); U07.1 COVID-19
CPT/HCPCS: 87632; 87635

== ENCOUNTER → 2023-07-31 16:42 | Outpatient (CLI) | payer BC, SELFPAY ==
[2023-07-31 17:30] LABS: Hemoglobin A1C 5.2 % (4.0-6.0)
== END ==
PROVIDERS: PCP Family Medicine; Visit Provider Specialist
DX: R73.9 Hyperglycemia, unspecified (principal)
CPT/HCPCS: 83036

== ENCOUNTER 2023-08-11 17:37 | Emergency (ER) | payer BC, SELFPAY ==
[2023-08-11 17:40] VITALS: BP 130/82; PULSE 76; RESP 20; TEMP 37.1; O2SAT 98; BMI 35.9
--- NOTE | 2023-08-11 17:51 | EXP.UTC ---
Discharge Plan Disposition Patient Disposition: Home, Self-Care Condition: Good Prescriptions Prescriptions: New amoxicillin [amoxicillin] 875 mg tablet 875 mg PO Q12H Qty: 20 0RF methylprednisolone 4 mg Tablets,Dose Pack 4 mg PO DIRECTED Qty: 21 0RF No Action omeprazole 40 mg capsule,delayed release(DR/EC) 40 mg PO DAILY Patient Comments: TAKE ONE CAPSULE BY MOUTH EVERY DAY Nurtec ODT 75 mg tablet,disintegrating 75 mg PO PRN Patient Comments: DISSOLVE ONE TABLET in MOUTH ONCE AT ONSET of HEADACHE OR prodromal symptoms DO NOT TAKE MORE THAN 1 TABLET in 24 hours lisinopril-hydrochlorothiazide 20-12.5 mg tablet 1 tab PO DAILY Patient Comments: TAKE ONE TABLET BY MOUTH EVERY DAY fluoxetine 10 mg capsule 20 mg PO DAILY Patient Comments: TAKE ONE CAPSULE BY MOUTH EVERY DAY Referrals Follow up/Referrals: Ramón Tubbs MD [Primary Care Provider] - See instructions Activity Restrictions/Add. Instructions Additional Instructions/Restrictions: Take tylenol or ibuprofen for pain or fever. Take the medications as directed. Follow up with your regular doctor. GO TO THE ER FOR ANY WORSENING SYMPTOMS Clinical Impressions Clinical Impression: Otitis media Instructions Patient Instructions: Middle Ear Infection Discharge ED Provider: Gino Marcos [facility] General Stated complaint: left ear pain Time Seen by Provider: 08/11/23 17:50 History of Present Illness Provider Complaint: He states that for the past 3 days he has had worsening left ear pain. He denies other symptoms. He has decreased hearing in that ear also. Related Data Home Medications Medication Instructions Recorded Confirmed lisinopril 20 1 tab PO DAILY 07/23/23 08/11/23 mg-hydrochlorothiazide 12.5 mg tablet fluoxetine 10 mg capsule 20 mg PO DAILY 07/31/23 08/11/23 omeprazole 40 mg capsule,delayed 40 mg PO DAILY 07/31/23 08/11/23 release rimegepant 75 mg disintegrating 75 mg PO PRN 07/31/23 07/31/23 tablet (Nurtec ODT) Previous Rx's Medication Instructions Recorded amoxicillin 875 mg tablet 875 mg PO Q12H #20 tabs 08/11/23 methylprednisolone 4 mg tablets in 4 mg PO DIRECTED #21 tabs 08/11/23 a dose pack Allergies Allergy/AdvReac Type Severity Reaction Status Date / Time No Known Allergies Allergy Verified 07/31/23 15:50 [facility] Disclaimer: The information contained in this section may have been updated after the patient was seen, as this information can be updated by other users. Medical History (Updated 08/11/23 @ 18:05 by Gino Marcos APRN) GERD (gastroesophageal reflux disease) Headache HTN (hypertension) HTN (hypertension) Hyperparathyroidism Hypertrophy of uvula Hypocalcemia Hypothyroid Impacted cerumen of left ear Obstructive sleep apnea Tinnitus Surgical History H/O partial thyroidectomy Family History Other Stroke Social History Smoking Status: Former smoker smoking status stop date: 02/03/23 second hand exposure: Yes alcohol intake: never substance use type: denies use current occupational status: employed Travel in the last 8 weeks: None household members: spouse housing: house marital status: ROS Obtained: Yes All systems reviewed & no additional complaints except as documented Constitutional Constitutional: Denies chills, Reports fever(s) and Reports poor appetite Eyes Eyes: Denies eye discharge ENT Ears, Nose, Mouth, and Throat: Denies ear discharge, Reports otalgia, Denies hearing loss, Denies sinus pain and Reports sore throat Cardiovascular Cardiovascular: Denies chest pain and Denies dyspnea Respiratory Respiratory: Denies chest congestion, Reports cough and Denies dyspnea Gastrointestinal Gastrointestingal: Denies a
[2023-08-11 18:05] VITALS: BP 130/82; PULSE 76; RESP 20; TEMP 37.1; O2SAT 98
== END 2023-08-11 18:08 | disposition home or self-care (01) ==
PROVIDERS: Emergency Provider Nurse Practitioner Family; PCP Psychiatry & Neurology Sleep Medicine
DX: H66.93 Otitis media, unspecified, bilateral (principal); R50.9 Fever, unspecified; R07.0 Pain in throat; R05.9 Cough, unspecified; K21.9 Gastro-esophageal reflux disease without esophagitis; I10 Essential (primary) hypertension
CPT/HCPCS: 99204; 99212; G0463

== ENCOUNTER → 2023-11-22 20:10 | Outpatient (CLI) | payer BC, SELFPAY | PROVIDERS: PCP Family Medicine; Visit Provider Nurse Practitioner Family | DX: G47.33 Obstructive sleep apnea (adult) (pediatric) (principal); G47.37 Central sleep apnea in conditions classified elsewhere; G47.36 Sleep related hypoventilation in conditions classified elsewhere; G47.63 Sleep related bruxism | CPT/HCPCS: 95810 ==